=== PATIENT | female | born 1950 | race African-American/Black ===

== ENCOUNTER → 2016-06-30 | Outpatient (CLI) | payer MEDICAID, MEDICARE | LOC: WI 13:50 | PROVIDERS: ATTEND Internal Medicine Geriatric Medicine | DX: Z12.31 Encounter for screening mammogram for malignant neoplasm of breast (principal) | CPT/HCPCS: 77067; G0202 ==

== ENCOUNTER 2016-07-23 12:49 | Observation (INO) | payer MEDICARE, OTHER ==
[2016-07-23 13:12] LABS: ABSOLUTE EOSINOPHILS # (AUTO) 0.1 10^3/uL (0.0-0.6); ABSOLUTE LYMPHOCYTES (AUTO) 1.6 10^3/uL (0.5-4.7); ABSOLUTE MONOCYTES (AUTO) 0.5 10^3/uL (0.1-1.4); ABSOLUTE NEUT (AUTO) 2.4 10^3/uL (1.7-8.2); BASOPHILS % (AUTO) 0.7 % (0-2); EOSINOPHILS % (AUTO) 2.6 % (0-6); HEMATOCRIT 38.4 % (36.0-47.0); HEMOGLOBIN 12.9 g/dL (12.0-15.5); HGB HCT DIFFERENCE 0.3; LYMPHOCYTES % (AUTO) 34.4 % (13-45); MEAN CORPUSCULAR HEMOGLOBIN 30.6 pg (27.0-33.4); MEAN CORPUSCULAR HGB CONC 33.6 g/dL (32.0-36.0); MEAN CORPUSCULAR VOLUME 91 fl (80-97); MONOCYTES % (AUTO) 9.7 % (3-13); RED BLOOD COUNT 4.22 10^6/uL (3.72-5.28); RED CELL DISTRIBUTION WIDTH 13.6 % (11.5-14.0); SEGMENTED NEUTROPHILS % (AUTO) 52.6 % (42-78); WHITE BLOOD COUNT 4.7 10^3/uL (4.0-10.5)
[2016-07-23] MEDS ORDERED: ASPIRIN 81 MG TABLET, CHEWABLE PO ONE (13:13)
[2016-07-23 13:24] LABS: PROTHROMBIN TIME 13.4 SEC (11.4-15.4)
[2016-07-23 13:30] LABS: ALANINE AMINOTRANSFERASE 34 U/L (9-52); ALBUMIN 3.7 g/dL (3.5-5.0); ALKALINE PHOSPHATASE 83 U/L (38-126); ANION GAP 11 (5-19); ASPARTATE AMINO TRANSFERASE 28 U/L (14-36); BILIRUBIN,DIRECT 0.4 mg/dL (0.0-0.4); BILIRUBIN,TOTAL 0.5 mg/dL (0.2-1.3); BLOOD UREA NITROGEN 10 mg/dL (7-20); CALCIUM 9.4 mg/dL (8.4-10.2); CARBON DIOXIDE 26 mmol/L (22-30); CHLORIDE 105 mmol/L (98-107); CREATINE KINASE 149 U/L (30-135); CREATININE RESULT 0.74 mg/dL (0.52-1.25); GLUCOSE 223 mg/dL (75-110); POTASSIUM 4.6 mmol/L (3.6-5.0); SODIUM 142.4 mmol/L (137-145); TOTAL PROTEIN 7.6 g/dL (6.3-8.2)
[2016-07-23 13:41] LABS: CREATINE KINASE MB 1.38 ng/mL (<4.55); TROPONIN I 0.012 ng/mL
[2016-07-23] MEDS: NITROGLYCERIN 0.4 MG/TAB 25 TAB/BOTTLE SL PRN ×2 (13:42→14:00)
--- NOTE | 2016-07-23 14:11 | RADIOLOGY REPORT (SQ) ---
EXAM DESCRIPTION: CHEST SINGLE VIEW COMPLETED DATE/TIME: 07/23/2016 1:54 pm REASON FOR STUDY: chest pain COMPARISON: 07/27/2015. EXAM PARAMETERS: NUMBER OF VIEWS: One view. TECHNIQUE: Single frontal radiographic view of the chest acquired. RADIATION DOSE: NA LIMITATIONS: None. FINDINGS: LUNGS AND PLEURA: No opacities, masses or pneumothorax. No pleural effusion. MEDIASTINUM AND HILAR STRUCTURES: No masses. Contour normal. HEART AND VASCULAR STRUCTURES: Heart normal in size. Normal vasculature. BONES: No acute findings. HARDWARE: None in the chest. OTHER: No other significant finding. IMPRESSION: NO ACUTE RADIOGRAPHIC FINDING IN THE CHEST. TECHNICAL DOCUMENTATION: JOB ID: [id number]
--- NOTE | 2016-07-23 14:36 | ER Document Report ---
ED Cardiac - General Chief Complaint: Chest Pain Stated Complaint: CHEST PAIN Time Seen by Provider: 07/23/16 12:58 Mode of Arrival: Ambulatory Information source: Patient Notes: This is a 66-year-old female with a history of hypertension and diabetes who presents for evaluation of chest pain. She reports off and on mild chest pain for the past 2 or 3 days, however she had an episode that was much more severe this morning at [facility]. She states that while at [facility] she had substernal chest pain and pressure which radiated on her left upper extremity and felt like a "tight band". She did have associated shortness of breath, nausea, and diaphoresis. This episode scared her and EMS was notified and she came to the ER. Of note her initial blood pressure upon EMS arrival was 207/124. She states that she has not taken her medication today. Currently she states that she is feeling much better however still has dull right-sided chest pain which she rates as a 2/10. She is unsure when her last stress test was and thinks that it may have been several years ago. PCP: Dr. Mcknight TRAVEL OUTSIDE OF THE [place] IN LAST 30 DAYS: No - Related Data Allergies/Adverse Reactions: No Known Allergies Allergy (Verified 02/28/15 20:07) Past Medical History - General Information source: Patient - Social History Smoking Status: Never Smoker Chew tobacco use (# tins/day): No Frequency of alcohol use: None Drug Abuse: None Family History: Reviewed & Not Pertinent - Past Medical History Cardiac Medical History: Reports: Hx Hypertension Denies: Hx Coronary Artery Disease, Hx Heart Attack Pulmonary Medical History: Reports: Hx Asthma, Hx Bronchitis Denies: Hx COPD, Hx Pneumonia Neurological Medical History: Reports: Hx Migraine. Denies: Hx Cerebrovascular Accident, Hx Seizures Endocrine Medical History: Reports: Hx Diabetes Mellitus Type 1, Hx Diabetes Mellitus Type 2 GI Medical History: Reports: Hx Gastroesophageal Reflux Disease Musculoskeltal Medical History: Reports Hx Arthritis Psychiatric Medical History: Reports: Hx Depression, Hx Schizophrenia Past Surgical History: Reports: Hx Abdominal Surgery, Hx Hysterectomy, Hx Orthopedic Surgery - Immunizations Immunizations up to date: Yes Hx Diphtheria, Pertussis, Tetanus Vaccination: Yes Review of Systems - Review of Systems Constitutional: No symptoms reported. denies: Chills, Fever EENT: No symptoms reported Cardiovascular: See HPI Respiratory: See HPI. denies: Cough Gastrointestinal: No symptoms reported Genitourinary: No symptoms reported Musculoskeletal: No symptoms reported. denies: Leg swelling Skin: No symptoms reported Hematologic/Lymphatic: No symptoms reported Neurological/Psychological: No symptoms reported Physical Exam - Vital signs Vitals: Resp 17 07/23/16 13:00 - Notes Notes: PHYSICAL EXAMINATION: GENERAL: Well-appearing, well-nourished elderly female, pleasant and conversant and in no acute distress. HEAD: Atraumatic, normocephalic. EYES: Pupils equal round and reactive to light, extraocular movements intact, sclera anicteric, conjunctiva are normal. ENT: nares patent, oropharynx clear without exudates. Moist mucous membranes. NECK: Normal range of motion, supple without lymphadenopathy LUNGS: Breath sounds clear to auscultation bilaterally and equal. No wheezes rales or rhonchi. HEART: Regular rate and rhythm without murmurs ABDOMEN: Soft, nontender, normoactive bowel sounds. No guarding, no rebound. No masses appreciated. EXTREMITIES: Normal range of motion,no edema NEUROLOGICAL: Cranial nerves grossly intact. Normal speech. No gross focal motor or sensory deficits appreciated PSYCH: Normal mood, normal affect. SKIN: Warm, Dry, normal turgor, no rashes or lesions noted. Course - Re-evaluation Re-evalutation: 07/23/16 15:29 Pt has resolution of chest pain in the ER. However, she has multiple risk factors with a HEART score of 5 and will be admitted for further workup. Discussed with Dr. Hatch for Dr. Mcknight who accepts pt for admission. Discussed with patient and family who are in agreement, questions answered. - Vital Signs Vital signs: Temp Pulse Resp BP Pulse Ox 98.6 F 87 14 158/86 H 100 07/23/16 13:02 07/23/16 13:02 07/23/16 14:46 07/23/16 14:46 07/23/16 14:46 07/23/16 15:27 - Laboratory Result Diagrams: 07/23/16 12:56 07/23/16 12:56 Laboratory results interpreted by me: 07/23/16 12:56 Glucose 223 H Creatine Kinase 149 H - Diagnostic Test Radiology reviewed: Reports reviewed - CXR: no acute findings - EKG Interpretation by Me Additional EKG results interpreted by me: 07/23/16 15:29 EKG at 1253 shows sinus rhythm with a rate of 83. IN, QRS, and QT intervals are within normal limits. There is no ST segment elevation or depression. Discharge - Discharge Clinical Impression: Accelerated hypertension Chest pain Qualifiers: Chest pain type: unspecified Qualified Code(s): R07.9 - Chest pain, unspecified Condition: Stable Disposition: ADMITTED OBSERVATION Admitting Provider: Nikolai Unit Admitted: [facility] Referrals: DERIC MCKNIGHT MD [Primary Care Provider] - Follow up as needed
[2016-07-23] MEDS ORDERED: GLUCAGON,HUMAN RECOMB 1 MG INJ IM PRN (17:59)
[2016-07-23] MEDS ORDERED: DEXTROSE 50%-WATER SYRINGE 25 GM/50 ML DOSE IV PRN (17:59)
[2016-07-23] MEDS ORDERED: DEXTROSE 40% GEL 15 GM TUBE X 2 PO PRN (17:59)
[2016-07-23] MEDS ORDERED: DEXTROSE 40% GEL 15 GM TUBE PO PRN (17:59)
[2016-07-23] MEDS ORDERED: DEXTROSE 50%-WATER SYRINGE 12.5 GM/25 ML DOSE IV PRN (17:59)
[2016-07-23] MEDS ORDERED: ACETAMINOPHEN 325 MG TABLET PO PRN (19:14)
[2016-07-23] MEDS ORDERED: METOPROLOL SUCCINATE 50 MG TAB.SR.24H PO ONE (19:15)
[2016-07-23] MEDS ORDERED: NITROGLYCERIN 0.4 MG/TAB 25 TAB/BOTTLE SL PRN (19:16)
[2016-07-23] MEDS ORDERED: ALBUTEROL SULFATE HFA (90 MCG/PUFF) 8 GM MDI (1 MDI/ER DISP) IH PRN ×2 (19:21→21:09)
[2016-07-23] MEDS ORDERED: IPRATROPIUM/ALBUTEROL 0.5-2.5 MG/3 ML AMPUL NEB PRN (20:02)
[2016-07-23] MEDS ORDERED: FLUTICASONE PROPIONATE HFA 110 MCG/PUFF 12 GM MDI IH ONE ×2 (20:15→20:50)
[2016-07-23] MEDS ORDERED: ALBUTEROL SULFATE HFA (90 MCG/PUFF) 200 PUFF/8.5 GM MDI IH ONE (20:50)
[2016-07-23] MEDS: GABAPENTIN 400 MG CAPSULE PO SCH (22:13)
[2016-07-23] MEDS: INSULIN LISPRO 100 UNIT/ML 3 ML VIAL SUBCUT PRN (22:18)
[2016-07-23 22:25] LABS: CREATINE KINASE MB 1.3 ng/mL (<4.55); TROPONIN I 0.018 ng/mL
[2016-07-24 04:09] LABS: CREATINE KINASE MB 1.09 ng/mL (<4.55); TROPONIN I 0.023 ng/mL
[2016-07-24] MEDS: GABAPENTIN 400 MG CAPSULE PO SCH ×2 (06:16→14:10)
[2016-07-24] MEDS ORDERED: ALBUTEROL SULFATE HFA (90 MCG/PUFF) 200 PUFF/8.5 GM MDI IH PRN (07:02)
[2016-07-24] MEDS: MONTELUKAST SODIUM 10 MG TABLET PO SCH (09:39)
[2016-07-24] MEDS: LANSOPRAZOLE 15 MG TAB.RAP.DR PO SCH (09:40)
[2016-07-24] MEDS: INSULIN GLARGINE,HUM.REC.ANLOG 1,000 UNIT/10 ML UNIT SUBCUT SCH ×2 (09:41→18:02)
[2016-07-24] MEDS: METOPROLOL SUCCINATE 50 MG TAB.SR.24H PO SCH ×2 (09:41→19:39)
[2016-07-24] MEDS: HYDROCHLOROTHIAZIDE 25 MG TABLET PO SCH (09:42)
[2016-07-24] MEDS: METFORMIN HCL 500 MG TABLET PO SCH ×2 (09:42→18:01)
[2016-07-24] MEDS: SITAGLIPTIN PHOSPHATE 50 MG TABLET PO SCH ×2 (09:42→18:03)
[2016-07-24] MEDS: INSULIN LISPRO 100 UNIT/ML 3 ML VIAL SUBCUT PRN ×2 (09:43→12:53)
[2016-07-24] MEDS: DULOXETINE HCL 30 MG CAPSULE.DR PO SCH (09:44)
[2016-07-24] MEDS: LOSARTAN POTASSIUM 50 MG TABLET PO SCH (09:44)
[2016-07-24] MEDS: FLUTICASONE PROPIONATE HFA 110 MCG/PUFF 12 GM MDI IH SCH ×2 (09:45→18:04)
[2016-07-24 11:21] LABS: CREATINE KINASE MB 1.41 ng/mL (<4.55)
[2016-07-24 11:23] LABS: TROPONIN I < 0.012 ng/mL
[2016-07-24] MEDS ORDERED: GUAIFENESIN/CODEINE PHOS 100-10 MG/ 5 ML UDC PO PRN (12:14)
--- NOTE | 2016-07-24 12:14 | PDOC H&P ---
History of Present Illness Admission Date/PCP: 07/23/16 23:41 DERIC ROXANNA History of Present Illness: MELO PARDO is a 66 year old female, she came to the emergency room because of new onset substernal chest pressure. She was seen and evaluated in the ER, EKG was done, it was sinus rhythm,there is no acute ST-T wave change. The chest pain is not provoked by activity, is not relieved by rest, she has multiple risk factors for coronary artery disease including diabetes mellitus, hypertension. Past Medical History Cardiac Medical History: Reports: Hypertension Pulmonary Medical History: Reports: Asthma, Bronchitis Neurological Medical History: Reports: Migraine Endocrine Medical History: Reports: Diabetes Mellitus Type 2 GI Medical History: Reports: Gastroesophageal Reflux Disease Musculoskeltal Medical History: Reports: Arthritis Hematology: Denies: Anemia Past Surgical History Past Surgical History: Reports: Hysterectomy, Orthopedic Surgery Social History Smoking Status: Never Smoker Frequency of Alcohol Use: None Hx Recreational Drug Use: No Hx Prescription Drug Abuse: No - Advance Directive Resuscitation Status: Full Code Family History Family History: Reviewed & Not Pertinent Parental Family History Reviewed: Yes Children Family History Reviewed: Yes Sibling(s) Family History Reviewed.: Yes Medication/Allergy Home Medications: Albuterol Sulfate [Proair HFA] 2 puff IH Q4HP PRN 07/23/16 Duloxetine HCl [Cymbalta] 60 mg PO DAILY 07/23/16 Fluticasone Propionate [Flovent Hfa 110 Mcg Inhalation Aerosol 12 gm] 2 puff IH BID 07/23/16 Gabapentin [Neurontin 400 mg Capsule] 400 mg PO Q8 07/23/16 Hydrochlorothiazide 25 mg PO DAILY 07/23/16 Insulin Glargine,Hum.rec.anlog [Lantus Solostar] 60 units SQ QAM 07/23/16 Insulin Glargine,Hum.rec.anlog [Lantus Solostar] 70 units SQ QPM 07/23/16 Insulin Lispro [Humalog Kwikpen U-100] 0 units SQ .PERSLIDINGSCALE 07/23/16 Liraglutide [Victoza 2-Jose Alberto] 0.3 ml SQ DAILY 07/23/16 Losartan Potassium [Cozaar 100 mg Tablet] 100 mg PO DAILY 07/23/16 Montelukast Sodium [Singulair 10 mg Tablet] 10 mg PO DAILY 07/23/16 Omeprazole 20 mg PO DAILY 07/23/16 Saxagliptin HCl/Metformin HCl [Kombiglyze Xr 2.5-1,000 mg Tab] 1 tab PO BID Allergies/Adverse Reactions: No Known Allergies Allergy (Verified 02/28/15 20:07) Review of Systems Constitutional: ABSENT: chills, fever(s), headache(s), weight gain, weight loss Eyes: ABSENT: visual disturbances Ears: ABSENT: hearing changes Cardiovascular: PRESENT: chest pain Respiratory: PRESENT: cough Gastrointestinal: ABSENT: abdominal pain, constipation, diarrhea, hematemesis, hematochezia, nausea, vomiting Genitourinary: ABSENT: dysuria, hematuria Musculoskeletal: ABSENT: joint swelling Integumentary: ABSENT: rash, wounds Neurological: ABSENT: abnormal gait, abnormal speech, confusion, dizziness, focal weakness, syncope Psychiatric: ABSENT: anxiety, depression, homidical ideation, suicidal ideation Endocrine: ABSENT: cold intolerance, heat intolerance, menstrual abnormalities, polydipsia, polyuria Hematologic/Lymphatic: ABSENT: easy bleeding, easy bruising, lymphadenopathy Physical Exam Vital Signs: Temp Pulse Resp BP Pulse Ox 97.7 F 51 L 20 186/76 H 100 07/24/16 11:31 07/24/16 11:31 07/24/16 11:31 07/24/16 11:31 07/24/16 11:31 Intake & Output 07/23/16 07/24/16 07/25/16 06:59 06:59 06:59 Intake Total 719 Output Total 400 Balance 319 Weight 89.6 kg General appearance: PRESENT: no acute distress, well-developed, well-nourished Head exam: PRESENT: atraumatic, normocephalic Eye exam: PRESENT: conjunctiva pink, EOMI, PERRLA. ABSENT: scleral icterus Ear exam: PRESENT: normal external ear exam Mouth exam: PRESENT: moist, tongue midline Neck exam: PRESENT: full ROM Respiratory exam: PRESENT: clear to auscultation braxton Cardiovascular exam: PRESENT: RRR, +S1, +S2 Pulses: PRESENT: normal dorsalis pedis pul, +2 pedal pulses bilateral Vascular exam: PRESENT: normal capillary refill GI/Abdominal exam: PRESENT: normal bowel sounds, soft Rectal exam: PRESENT: deferred Neurological exam: PRESENT: alert, awake, oriented to person, oriented to place , oriented to time, oriented to situation, CN II-XII grossly intact Psychiatric exam: PRESENT: appropriate affect, normal mood Skin exam: PRESENT: dry, intact, warm Results Laboratory Results: 07/24/16 07/24/16 07/24/16 03:37 03:37 10:38 Creatine Kinase 101 97 CK-MB (CK-2) 1.09 Troponin I 0.023 07/24/16 10:38 Creatine Kinase CK-MB (CK-2) 1.41 Troponin I < 0.012 Impressions: Chest X-Ray 07/23/16 13:02 IMPRESSION: NO ACUTE RADIOGRAPHIC FINDING IN THE CHEST. Assessment & Plan - Diagnosis (1) Chest pain Qualifiers: Chest pain type: unspecified Qualified Code(s): R07.9 - Chest pain, unspecified Is this a current diagnosis for this admission?: YesPlan: She has multiple risk factors for coronary artery disease, she is admitted for observation, cardiac enzymes will be drawn, a nuclear stress test will be ordered.
--- NOTE | 2016-07-24 21:11 | EKG REPORT ---
SEVERITY:- NORMAL ECG - SINUS RHYTHM : Confirmed by: Konrad Jordan 24-Jul-2016 21:10:12
[2016-07-25] MEDS: INSULIN GLARGINE,HUM.REC.ANLOG 1,000 UNIT/10 ML UNIT SUBCUT SCH ×2 (09:16→17:57)
[2016-07-25] MEDS: SITAGLIPTIN PHOSPHATE 50 MG TABLET PO SCH ×2 (11:36→17:59)
[2016-07-25] MEDS: DULOXETINE HCL 30 MG CAPSULE.DR PO SCH (11:36)
[2016-07-25] MEDS: METOPROLOL SUCCINATE 50 MG TAB.SR.24H PO SCH ×2 (11:37→18:02)
[2016-07-25] MEDS: LOSARTAN POTASSIUM 50 MG TABLET PO SCH (11:37)
[2016-07-25] MEDS: LANSOPRAZOLE 15 MG TAB.RAP.DR PO SCH (11:37)
[2016-07-25] MEDS: METFORMIN HCL 500 MG TABLET PO SCH ×2 (11:38→17:59)
[2016-07-25] MEDS: MONTELUKAST SODIUM 10 MG TABLET PO SCH (11:38)
[2016-07-25] MEDS: HYDROCHLOROTHIAZIDE 25 MG TABLET PO SCH (11:38)
[2016-07-25] MEDS: FLUTICASONE PROPIONATE HFA 110 MCG/PUFF 12 GM MDI IH SCH ×2 (11:41→18:02)
[2016-07-25] MEDS ORDERED: REGADENOSON INJ 0.4 MG/5 ML DISP.SYRIN IV ONE (13:48)
--- NOTE | 2016-07-25 18:09 | PDOC DISCHARGE SUMMARY ---
General - Admit/Disc Date/PCP Admission Date/Primary Care Provider: 07/23/16 23:41 DERIC ROXANNA Discharge Date: 07/25/16 - Discharge Diagnosis (1) Chest pain Is this a current diagnosis for this admission?: Yes - Additional Information Resuscitation Status: Full Code Discharge Diet: Cardiac, Diabetic Discharge Activity: Activity As Tolerated Home Medications: Albuterol Sulfate [Proair HFA] 2 puff IH Q4HP PRN 07/23/16 Duloxetine HCl [Cymbalta] 60 mg PO DAILY 07/23/16 Fluticasone Propionate [Flovent Hfa 110 Mcg Inhalation Aerosol 12 gm] 2 puff IH BID 07/23/16 Hydrochlorothiazide 25 mg PO DAILY 07/23/16 Insulin Glargine,Hum.rec.anlog [Lantus Solostar] 60 units SQ QAM 07/23/16 Insulin Glargine,Hum.rec.anlog [Lantus Solostar] 70 units SQ QPM 07/23/16 Insulin Lispro [Humalog Kwikpen U-100] 0 units SQ .PERSLIDINGSCALE 07/23/16 Liraglutide [Victoza 2-Jose Alberto] 0.3 ml SQ DAILY 07/23/16 Losartan Potassium [Cozaar 100 mg Tablet] 100 mg PO DAILY 07/23/16 Montelukast Sodium [Singulair 10 mg Tablet] 10 mg PO DAILY 07/23/16 Omeprazole 20 mg PO DAILY 07/23/16 Saxagliptin HCl/Metformin HCl [Kombiglyze Xr 2.5-1,000 mg Tab] 1 tab PO BID Metoprolol Succinate 25 mg PO DAILY #30 tab.er.24h 07/25/16 History of Present Illness History of Present Illness: MELO PARDO is a 66 year old femaleshe came to the emergency room because of new onset substernal chest pressure. She was seen and evaluated in the ER, EKG was done, it was sinus rhythm,there is no acute ST-T wave change. The chest pain is not provoked by activity, is not relieved by rest, she has multiple risk factors for coronary artery disease including diabetes mellitus, hypertension. Hospital Course Hospital Course: Her hospital course was remarkable for eventual normalization of her indeterminate Troponin I level. Her total CK level resolved almost immediately upon admission. Patient remain pain free at the time of my evaluation and discharge. Her Stress test official report was pending at the time of her discharge. She will follow up in the office as instructed upon discharge. Physical Exam Vital Signs: Temp Pulse Resp BP Pulse Ox 98.4 F 66 18 148/67 H 99 07/25/16 15:51 07/25/16 16:37 07/25/16 16:37 07/25/16 15:51 07/25/16 16:37 Intake & Output 07/24/16 07/25/16 07/26/16 06:59 06:59 06:59 Intake Total 719 2357 Output Total 400 2725 Balance 319 -368 Weight 89.6 kg 88.2 kg General appearance: PRESENT: no acute distress, well-developed, well-nourished Head exam: PRESENT: atraumatic, normocephalic Respiratory exam: PRESENT: clear to auscultation braxton Cardiovascular exam: PRESENT: RRR. ABSENT: diastolic murmur, rubs, systolic murmur GI/Abdominal exam: PRESENT: normal bowel sounds, soft. ABSENT: distended, guarding, mass, organolmegaly, rebound, tenderness Extremities exam: ABSENT: pedal edema Musculoskeletal exam: PRESENT: deformity - related to arthritis joint invoilvement Neurological exam: PRESENT: alert, awake, oriented to person, oriented to place , oriented to time, oriented to situation, CN II-XII grossly intact. ABSENT: motor sensory deficit Psychiatric exam: PRESENT: appropriate affect, normal mood. ABSENT: homicidal ideation, suicidal ideation Skin exam: PRESENT: dry, intact, warm. ABSENT: cyanosis, rash Results Laboratory Results: 07/24/16 07/24/16 07/24/16 03:37 03:37 10:38 Creatine Kinase 101 97 CK-MB (CK-2) 1.09 Troponin I 0.023 07/24/16 10:38 Creatine Kinase CK-MB (CK-2) 1.41 Troponin I < 0.012 Impressions: Chest X-Ray 07/23/16 13:02 IMPRESSION: NO ACUTE RADIOGRAPHIC FINDING IN THE CHEST. Qualifiers PATEINT BEING DISCHARGED WITH ANY OF THE FOLLOWING DIAGNOSIS?: No Plan Discharge Plan: D/C home today. Followup in the office as instructed upon discharge. Time Spent: Less than 30 Minutes
[2016-07-25 18:36] VITALS: BP 150/70
--- NOTE | 2016-07-25 23:21 | DRAGON STRESS TEST REPORT ---
Intravenous Lexiscan Cardiolite stress test using single photon emmision computerized tomography. Date of procedure: 07/25/2016. Ordering Provider: Dr. Hatch. Patient's status: Inpatient Indication: Chest pain. Coronary risk factors: Age, diabetes mellitus, and hypertension. Resting EKG: Sinus rhythm. Isolated T inversion in lead III. Stress EKG: No changes of ischemia. The patient has no chest pain or discomfort, and there were no arrhythmias seen. Reason for termination: Protocol. Conclusions: Normal EKG and hemodynamic response to IV Lexiscan. Nuclear data: At rest the patient was given 12.95 millicuries of technetium 99m sestamibi injected intravenously. As per protocol rest non gated SPECT images were obtained. Subsequently the patient was given intravenous Lexiscan at a dose of 0.4 mg in 5 mL intravenously, followed by flush with normal saline. Subsequently the stress dose of 41.1 millicuries of technetium 99m sestamibi was injected intravenously. As per protocol stress gated images were obtained. Nuclear interpretation: Review of images showed that all segments of the myocardium had normal perfusion at rest, and normal perfusion post stress with IV Lexiscan. All segments of the myocardium had normal motion, contraction, and thickening by gated study. T. I D. ratio was normal at 0.93. Computer read rest, and stress left ventricular ejection fraction were 52 %, and 48 %, respectively. Visually both the stress and rest ejection fractions were normal, and greater than 55%. Conclusion: 1. There is no scintigraphic evidence of Lexiscan induced myocardial ischemia. 2. There is no scintigraphic evidence of myocardial infarction/scar. Recommendations: Aggressive risk factor modification, and treating the underlying co- morbidities. MTDD
== END 2016-07-25 18:49 | disposition home or self-care (01) ==
LOC: ER 12:49 → EH 15:30 → UNDOADMIN 15:30 → EH 17:10 → 3S 17:10 → EH 23:41 → INTOOBSV 23:41 → 3S 23:41
PROVIDERS: ADMIT Internal Medicine Geriatric Medicine; ATTEND Internal Medicine Geriatric Medicine
DX: R07.89 Other chest pain (principal); E11.9 Type 2 diabetes mellitus without complications; I10 Essential (primary) hypertension; K21.9 Gastro-esophageal reflux disease without esophagitis; J45.909 Unspecified asthma, uncomplicated; M19.90 Unspecified osteoarthritis, unspecified site; R06.02 Shortness of breath; R11.0 Nausea; R61 Generalized hyperhidrosis; Z79.4 Long term (current) use of insulin; Z79.899 Other long term (current) drug therapy; Z98.890 Other specified postprocedural states; Z90.710 Acquired absence of both cervix and uterus
CPT/HCPCS: 99285; 36415 ×2; 82553 ×2; 82962 ×3; 82550 ×2; 85025; 85610; 80053; 84484 ×2; 93017; 71010; 78452; 93005; 93010; A9500; A9270 ×23; J2785; J3490 ×2; Q9969; J1815

== ENCOUNTER 2016-08-04 19:09 | Inpatient (IN) | payer MEDICARE, OTHER ==
--- NOTE | 2016-08-04 19:51 | ER Document Report ---
ED Medical Screen (RME) - General Chief Complaint: Abdominal Pain Stated Complaint: ABDOMINAL PAIN Time Seen by Provider: 08/04/16 19:42 Notes: This 66-year-old female patient with history of diabetes and hypertension comes emergency room complaining of onset last night of intermittent lower abdominal pain and cramps with nausea which is gotten much worse today. They are sharp cramps in the suprapubic and lower pelvic region. They do not radiate. She was admitted here just over a week ago for chest pain rule out, had a negative Lexiscan stress test. I have greeted and performed a rapid initial assessment of this patient. A comprehensive ED assessment and evaluation of the patient, analysis of test results and completion of the medical decision making process will be conducted by additional ED providers. TRAVEL OUTSIDE OF THE [place] IN LAST 30 DAYS: No - Related Data Allergies/Adverse Reactions: No Known Allergies Allergy (Verified 02/28/15 20:07) Past Medical History - Social History Chew tobacco use (# tins/day): No Frequency of alcohol use: None Drug Abuse: None - Past Medical History Cardiac Medical History: Reports: Hx Hypertension Denies: Hx Coronary Artery Disease, Hx Heart Attack Pulmonary Medical History: Reports: Hx Asthma, Hx Bronchitis Denies: Hx COPD, Hx Pneumonia Neurological Medical History: Reports: Hx Migraine. Denies: Hx Cerebrovascular Accident, Hx Seizures Endocrine Medical History: Reports: Hx Diabetes Mellitus Type 1, Hx Diabetes Mellitus Type 2 Renal/ Medical History: Denies: Hx Peritoneal Dialysis GI Medical History: Reports: Hx Gastroesophageal Reflux Disease Musculoskeltal Medical History: Reports Hx Arthritis Psychiatric Medical History: Reports: Hx Schizophrenia Denies: Hx Depression Past Surgical History: Reports: Hx Abdominal Surgery, Hx Hysterectomy, Hx Orthopedic Surgery - Immunizations Immunizations up to date: Yes Hx Diphtheria, Pertussis, Tetanus Vaccination: Yes Physical Exam - Vital signs Vitals: Temp Pulse Resp BP Pulse Ox 98.3 F 113 H 18 175/117 H 100 08/04/16 19:20 08/04/16 19:20 08/04/16 19:20 08/04/16 19:20 08/04/16 19:20 Course - Vital Signs Vital signs: Temp Pulse Resp BP Pulse Ox 98.3 F 113 H 18 175/117 H 100 08/04/16 19:20 08/04/16 19:20 08/04/16 19:20 08/04/16 19:20 08/04/16 19:20
[2016-08-04] MEDS ORDERED: ONDANSETRON HCL INJ/PF 4 MG/2 ML SDV IM ONE (19:53)
[2016-08-04] MEDS ORDERED: MORPHINE SULFATE 10 MG/ML INJ IV ONE ×2 (19:53→23:55)
[2016-08-04 20:46] LABS: ABSOLUTE BASOPHILS # (AUTO) 0.1 10^3/uL (0.0-0.2); ABSOLUTE MONOCYTES (AUTO) 0.7 10^3/uL (0.1-1.4); ABSOLUTE NEUT (AUTO) 7.6 10^3/uL (1.7-8.2); BASOPHILS % (AUTO) 0.7 % (0-2); EOSINOPHILS % (AUTO) 0.2 % (0-6); HEMATOCRIT 46.3 % (36.0-47.0); HEMOGLOBIN 15.2 g/dL (12.0-15.5); HGB HCT DIFFERENCE -0.7; LYMPHOCYTES % (AUTO) 19.5 % (13-45); MEAN CORPUSCULAR HEMOGLOBIN 29.6 pg (27.0-33.4); MEAN CORPUSCULAR HGB CONC 32.8 g/dL (32.0-36.0); MEAN CORPUSCULAR VOLUME 90 fl (80-97); RED BLOOD COUNT 5.13 10^6/uL (3.72-5.28); RED CELL DISTRIBUTION WIDTH 13.8 % (11.5-14.0); SEGMENTED NEUTROPHILS % (AUTO) 72.6 % (42-78); WHITE BLOOD COUNT 10.5 10^3/uL (4.0-10.5)
[2016-08-04 20:55] LABS: APPEARANCE,URINE SLIGHTLY-CLOUDY; BILIRUBIN,URINE NEGATIVE (NEGATIVE); GLUCOSE, URINE NEGATIVE (NEGATIVE); KETONES,URINE NEGATIVE (NEGATIVE); LEUKOCYTE ESTERASE,URINE MODERATE (NEGATIVE); NITRITE,URINE NEGATIVE (NEGATIVE); PROTEIN,URINE 100 mg/dL (NEGATIVE); UROBILINOGEN,URINE NEGATIVE mg/dL (<2.0)
--- NOTE | 2016-08-04 20:55 | RADIOLOGY REPORT (SQ) ---
EXAM DESCRIPTION: CT LTD RENAL STONE PROTOCOL ON COMPLETED DATE/TIME: 08/04/2016 8:43 pm REASON FOR STUDY: suprapubic, pelvic pain, cramps, nausea COMPARISON: None. TECHNIQUE: CT scan of the abdomen and pelvis performed without intravenous or oral contrast. Images reviewed with lung, soft tissue, and bone windows. Reconstructed coronal and sagittal MPR images revi ewed. All images stored on PACS. All CT scanners at this facility use dose modulation, iterative reconstruction, and/or weight based d osing when appropriate to reduce radiation dose to as low as reasonably achievable (ALARA). [facility]: Dose Right [facility]: CareDose [facility]: Dose Right [facility]: Teradose 4D [facility]: Teamo.ru RADIATION DOSE: 11.36mGy. LIMITATIONS: None. FINDINGS: LOWER CHEST: Mild subpleural scarring-subsegmental atelectasis. NON-CONTRASTED LIVER, SPLEEN, ADRENALS: Small amount of fluid over the dome of the liver. Evaluation limited by lack of IV contrast. No identified significant masses. PANCREAS: No masses. No peripancreatic inflammatory changes. GALLBLADDER: No identified stones by CT criteria. No inflammatory changes to suggest cholecystitis. RIGHT KIDNEY AND URETER: No suspicious masses. Assessment limited by lack of IV contrast. No signif icant calcifications. No hydronephrosis or hydroureter. LEFT KIDNEY AND URETER: No suspicious masses. Assessment limited by lack of IV contrast. No signifi cant calcifications. No hydronephrosis or hydroureter. AORTA AND RETROPERITONEUM: No aneurysm. No retroperitoneal masses or adenopathy. BOWEL AND PERITONEAL CAVITY: Small amounts of mesenteric free fluid in the left lower quadrant with m ildly dilated small bowel loops measuring 3.5 cm with small air-fluid levels, there does appear to be tethering in the mesenteric, suggestive of possible developing obstruction. APPENDIX: Not visualized. PELVIS, BLADDER, AND ABDOMINAL WALL: Mild free fluid. Bladder normal. BONES: No significant findings. OTHER: No other significant finding. IMPRESSION: Small amounts of mesenteric free fluid in the left lower quadrant with mildly dilated sm all bowel loops measuring 3.5 cm with small air-fluid levels, there does appear to be tethering in th e mesenteric, suggestive of possible developing obstruction. TECHNICAL DOCUMENTATION: JOB ID: [id number] Quality ID # [id number]: Final reports with documentation of one or more dose reduction techniques (e.g., Au tomated exposure control, adjustment of the mA and/or kV according to patient size, use of iterative reconstruction technique) 2010 [employer]- All Rights Reserved
[2016-08-04 22:19] LABS: ALANINE AMINOTRANSFERASE 29 U/L (9-52); ALBUMIN 4.4 g/dL (3.5-5.0); ALKALINE PHOSPHATASE 101 U/L (38-126); ANION GAP 12 (5-19); ASPARTATE AMINO TRANSFERASE 30 U/L (14-36); BILIRUBIN,DIRECT 0.3 mg/dL (0.0-0.4); BILIRUBIN,TOTAL 0.8 mg/dL (0.2-1.3); BLOOD UREA NITROGEN 16 mg/dL (7-20); CALCIUM 9.8 mg/dL (8.4-10.2); CARBON DIOXIDE 26 mmol/L (22-30); CHLORIDE 102 mmol/L (98-107); CREATININE RESULT 0.79 mg/dL (0.52-1.25); GLUCOSE 220 mg/dL (75-110); POTASSIUM 4.5 mmol/L (3.6-5.0); SODIUM 139.6 mmol/L (137-145); TOTAL PROTEIN 8.8 g/dL (6.3-8.2)
[2016-08-04] MEDS ORDERED: ONDANSETRON HCL INJ/PF 4 MG/2 ML SDV IV ONE (23:55)
[2016-08-04] MEDS ORDERED: NORMAL SALINE 1000 ML 1,000 ML IV ONE (23:55)
--- NOTE | 2016-08-05 01:11 | ER Document Report ---
ED General - General Chief Complaint: Abdominal Pain Stated Complaint: ABDOMINAL PAIN Time Seen by Provider: 08/04/16 19:42 Notes: Patient is a 66-year-old female who says that earlier today she started feeling nauseous or having pain in the lower portion of her abdomen. Pain is mostly in the left. She had one bowel movement today but has not been passing gas and had no further bowel movements since then. She never had these symptoms before. She has had no fevers. No diarrhea. No blood in emesis. No recent trauma to the abdomen. Only previous abdominal surgery is a left nephrectomy. No other complaints at this time. No dysuria. TRAVEL OUTSIDE OF THE [place] IN LAST 30 DAYS: No - Related Data Allergies/Adverse Reactions: No Known Allergies Allergy (Verified 02/28/15 20:07) Past Medical History - Social History Smoking Status: Never Smoker Chew tobacco use (# tins/day): No Frequency of alcohol use: None Drug Abuse: None Family History: Reviewed & Not Pertinent Patient has suicidal ideation: No Patient has homicidal ideation: No - Past Medical History Cardiac Medical History: Reports: Hx Hypertension Denies: Hx Coronary Artery Disease, Hx Heart Attack Pulmonary Medical History: Reports: Hx Asthma, Hx Bronchitis Denies: Hx COPD, Hx Pneumonia Neurological Medical History: Reports: Hx Migraine. Denies: Hx Cerebrovascular Accident, Hx Seizures Endocrine Medical History: Reports: Hx Diabetes Mellitus Type 1, Hx Diabetes Mellitus Type 2 Renal/ Medical History: Denies: Hx Peritoneal Dialysis GI Medical History: Reports: Hx Gastroesophageal Reflux Disease Musculoskeltal Medical History: Reports Hx Arthritis Psychiatric Medical History: Reports: Hx Schizophrenia Denies: Hx Depression Past Surgical History: Reports: Hx Abdominal Surgery, Hx Hysterectomy, Hx Orthopedic Surgery - Immunizations Immunizations up to date: Yes Hx Diphtheria, Pertussis, Tetanus Vaccination: Yes Review of Systems - Review of Systems Notes: My Normal Review Basic REVIEW OF SYSTEMS: CONSTITUTIONAL : Denies fever, chills, or sweats. Denies recent illness. RESPIRATORY: Denies cough, cold, or chest congestion. Denies shortness of breath, difficulty breathing, or wheezing. GASTROINTESTINAL: Abdominal pain and vomiting. GENITOURINARY: Denies difficulty urinating, painful urination, burning, frequency, or blood in urine. FEMALE GENITOURINARY: Denies vaginal bleeding, abnormal or irregular periods. LMP: MUSCULOSKELETAL: Denies neck or back pain or joint pain or swelling. SKIN: Denies rash or skin lesions. NEUROLOGICAL: Denies altered mental status or loss of consciousness. Denies headache. Denies weakness or paralysis or loss of use of either side. Denies problems with gait or speech. Denies sensory or motor loss. ALL OTHER SYSTEMS REVIEWED AND NEGATIVE. Physical Exam - Vital signs Vitals: Temp Pulse Resp BP Pulse Ox 98.3 F 113 H 18 175/117 H 100 08/04/16 19:20 08/04/16 19:20 08/04/16 19:20 08/04/16 19:20 08/04/16 19:20 - Notes Notes: General Appearance: Well nourished, alert, cooperative, no acute distress, moderate obvious discomfort. Vitals: reviewed, See vital signs table. Head: no swelling or tenderness to the head Eyes: PERRL, EOMI, Conjuctiva clear Mouth: No decreasd moisture Lungs: No wheezing, No rales, No rhonci, No accessory muscle use, good air exchange bilaterally. Heart: Normal rate, Regular rythm, No murmur, no rub Abdomen: Diminished bowel sounds, moderate suprapubic and left lower quadrant abdominal tenderness to palpation, abdomen is soft and nonrigid. No guarding, no rebound, no abdominal masses, no organomegaly Extremities: strength 5/5 in all extremities, good pulses in all extremities, no swelling or tenderness in the extremities, no edema. Skin: warm, dry, appropriate color, no rash Neuro: speech clear, oriented x 3, normal affect, responds appropriately to questions. Course - Vital Signs Vital signs: Temp Pulse Resp BP Pulse Ox 98.3 F 113 H 18 175/117 H 100 08/04/16 19:20 08/04/16 19:20 08/04/16 19:20 08/04/16 19:20 08/04/16 19:20 - Laboratory Result Diagrams: 08/04/16 20:33 08/04/16 21:50 Laboratory results interpreted by me: 08/04/16 08/04/16 20:33 21:50 Glucose 220 H Total Protein 8.8 H Urine Protein 100 H Ur Leukocyte Esterase MODERATE H - Transfer of Care Notes: 08/05/16 01:[address] scan shows evidence of developing small bowel obstruction. I did speak with Dr. Torres, general surgeon, who requested we place an NG tube and he said he would manage the obstruction, however, he requests that we call medicine to see if they will admit because of the patient's multiple comorbidities including diabetes, hypertension. I spoke with Dr. Hatch who is covering for the patient's primary care physician, Dr. Menchaca he agrees to admit the patient. Patient will be admitted for further management. Dictation of this chart was performed using voice recognition software; therefore, there may be some unintended grammatical errors. Discharge - Discharge Clinical Impression: Small bowel obstruction Condition: Stable Disposition: ADMITTED OBSERVATION Admitting Provider: Nikolai Unit Admitted: Medical Floor
[2016-08-05] MEDS ORDERED: METOCLOPRAMIDE HCL INJ/PF 10 MG/2 ML SDV IV ONE (02:02)
[2016-08-05] MEDS ORDERED: LIDOCAINE 2% JELLY 30 ML TUBE TOP ONE (02:02)
[2016-08-05] MEDS ORDERED: LIDOCAINE 2% JELLY 5 ML TUBE ONE (02:10)
[2016-08-05] MEDS ORDERED: ENALAPRILAT DIHYDRATE INJ/PF 2.5 MG/2 ML SDV IV ONE ×2 (05:17→05:45)
[2016-08-05] MEDS ORDERED: DEXTROSE 50%-WATER 25 GM/50 ML DISP.SYRIN IV PRN ×2 (05:23)
[2016-08-05] MEDS ORDERED: DEXTROSE 40% GEL 15 GM TUBE PO PRN ×2 (05:23)
[2016-08-05] MEDS ORDERED: GLUCAGON,HUMAN RECOMB 1 MG INJ SUBCUT PRN (05:23)
[2016-08-05] MEDS ORDERED: PHARMACY COMMUNICATION ORDER MC NR (05:30)
[2016-08-05] MEDS ORDERED: ENALAPRILAT DIHYDRATE INJ/PF 2.5 MG/2 ML SDV IV PRN (05:36)
[2016-08-05] MEDS ORDERED: ONDANSETRON HCL INJ/PF 4 MG/2 ML SDV ONE (06:04)
[2016-08-05] MEDS ORDERED: ONDANSETRON HCL INJ/PF 4 MG/2 ML SDV IV PRN (06:32)
--- NOTE | 2016-08-05 06:54 | RADIOLOGY REPORT (SQ) ---
EXAM DESCRIPTION: KUB/ABDOMEN (SINGLE VIEW) COMPLETED DATE/TIME: 08/05/2016 6:25 am REASON FOR STUDY: check for NG tube placement COMPARISON: CT, 08/04/2016. NUMBER OF VIEWS: One view. TECHNIQUE: Supine radiographic image of the abdomen acquired. LIMITATIONS: None. FINDINGS: BOWEL GAS PATTERN: 3 stacked appearing loops of jejunal bowel measuring up to 3.5 cm in di ameter with gas distention suggestive of focal ileus consistent with CT, 08/04/2016. Moderate right co lonic stool retention. CALCIFICATIONS: No suspicious calcifications. SOFT TISSUES: No gross mass or suggestion of organomegaly. HARDWARE: Left pelvic clips. BONES: No acute fracture. No worrisome bone lesions. OTHER: No other significant finding. IMPRESSION: Focal ileus pattern of the left paracentral abdomen ; cannot exclude early or partial ob structive process. TECHNICAL DOCUMENTATION: JOB ID: [id number] [employer]- All Rights Reserved
[2016-08-05] MEDS: INSULIN LISPRO 100 UNIT/ML 3 ML VIAL SUBCUT PRN ×4 (07:18→23:48)
--- NOTE | 2016-08-05 08:50 | RADIOLOGY REPORT (SQ) ---
EXAM DESCRIPTION: KUB/ABDOMEN (SINGLE VIEW) COMPLETED DATE/TIME: 08/05/2016 8:34 am REASON FOR STUDY: Check NG tube placement COMPARISON: None. NUMBER OF VIEWS: One view. TECHNIQUE: Supine radiographic image of the abdomen acquired. LIMITATIONS: None. FINDINGS: BOWEL GAS PATTERN: Stable mild distension of small bowel loops. CALCIFICATIONS: No suspicious calcifications. SOFT TISSUES: No gross mass or suggestion of organomegaly. HARDWARE: Interval placement of nasogastric tube terminating expected location of the stomach. BONES: No acute fracture. No worrisome bone lesions. OTHER: No other significant finding. IMPRESSION: SATISFACTORY PLACEMENT OF NASOGASTRIC TUBE. OTHERWISE STABLE ABDOMINAL RADIOGRAPH. TECHNICAL DOCUMENTATION: JOB ID: [id number] [employer]- All Rights Reserved
[2016-08-05] MEDS ORDERED: MORPHINE SULFATE 10 MG/ML INJ ONE (10:15)
[2016-08-05] MEDS: MORPHINE SULFATE 10 MG/ML INJ IV PRN (10:17)
--- NOTE | 2016-08-05 16:59 | CONSULTATION REPORT E ---
Consultation Report NAME: MELO PARDO : 1950 AGE: 66Y DATE: 08/05/2016 413 A TO: RAMÍREZ STEPHEN M.D. FROM: DERIC MCKNIGHT M.D. Requesting Physician REASON FOR CONSULTATION: Patient with a small bowel obstruction on a limited CAT scan of the abdomen. HISTORY OF PRESENT ILLNESS: This is a 66-year-old female who had a history of hysterectomy, complained of abdominal pains yesterday. Pain is more in the lower portion of the abdomen and more towards the left side. She had a bowel movement yesterday, but has not been passing gas. No bowel movement since then. Patient claims she never had these symptoms in the past. Denies any fever, diarrhea. No blood in emesis. No recent trauma to the abdomen. PAST HISTORY: 1. History of diabetes mellitus, type 1 and type 2. 2. Hypertension. 3. COPD. 4. Bronchitis. 5. Asthma. 6. History of migraines. 7. GERD. 8. Reports arthritis. PSYCHIATRIC HISTORY: History of schizophrenia. PAST SURGICAL HISTORY: 1. Abdominal surgery. 2. Hysterectomy. 3. History of orthopedic surgery. REVIEW OF SYSTEMS: CONSTITUTIONAL: Denies fever, chills, or sweats. RESPIRATORY: Denies cough or chest congestion. GASTROINTESTINAL: Abdominal pain with vomiting, as in HPI. GENITOURINARY: No dysuria nor blood in the urine. Female genitourinary. Denies vaginal bleeding. MUSCULOSKELETAL: Denies neck or back pains. SKIN: Denies rash or skin lesions. NEUROLOGIC: Denies loss of consciousness or altered mental status. All other systems are reviewed and unremarkable. ALLERGIES: NONE KNOWN. SOCIAL HISTORY: Never smoked. Denies alcohol use or drug use. FAMILY HISTORY: Noncontributory. PHYSICAL EXAMINATION: GENERAL: Well-developed, well-nourished, 66-year-old female, alert and oriented. Complaining of abdominal pain. HEENT: Neck is supple. No thyromegaly. LUNGS: Clear. HEART: Regular sinus rhythm. ABDOMEN: Soft with tenderness in the left lower quadrant. EXTREMITIES: No edema. SKIN: Warm and dry. NEUROLOGIC: Oriented x3. VITAL SIGNS: Temperature of 98.3 degrees Fahrenheit, pulse of 113 per minute, respiratory of 18 per minute, blood pressure 175/117, pulse oximetry of 100% on room air. LABS: Her labs showed a white count that is normal. She had a CT scan of the abdomen which showed mildly dilated small bowel loops to about 3.5 cm in diameter with air fluid levels. This appears to be developing an obstruction. IMPRESSION: Partial small bowel obstruction, likely due to adhesions. PLAN: 1. Continue to keep the NG tube. 2. Monitor electrolytes and CBC in the morning. 3. Followup KUB in the morning. I just saw her around 4:00 p.m. today and she claimed her pains are much less than this morning. DICTATING PHYSICIAN: RAMÍREZ STEPHEN M.D. [id number] PHY#: [id number] ID: [id number] JOB#: [id number] ACCT: [id number] cc:RAMÍREZ STEPHEN M.D. >
[2016-08-05 17:08] LABS: HEMOGLOBIN 13.5 g/dL (12.0-15.5); HGB HCT DIFFERENCE -0.5; MEAN CORPUSCULAR HEMOGLOBIN 30.1 pg (27.0-33.4); MEAN CORPUSCULAR HGB CONC 32.9 g/dL (32.0-36.0); MEAN CORPUSCULAR VOLUME 91 fl (80-97); RED BLOOD COUNT 4.48 10^6/uL (3.72-5.28); RED CELL DISTRIBUTION WIDTH 13.5 % (11.5-14.0); WHITE BLOOD COUNT 9.1 10^3/uL (4.0-10.5)
[2016-08-05 17:19] LABS: PROTHROMBIN TIME 13.8 SEC (11.4-15.4)
[2016-08-05 17:27] LABS: CREATININE RESULT 0.78 mg/dL (0.52-1.25)
[2016-08-05 17:34] LABS: PARTIAL THROMBOPLASTIN TIME 20.4 SEC (23.5-35.8)
[2016-08-05] MEDS: DEXTROSE 5%-WATER 1000 ML 1,000 ML IV PRN (21:20)
[2016-08-05] MEDS: HEPARIN SOD (PORCINE) 5,000 UNIT/ML 1 ML SYRINGE SUBCUT SCH (21:20)
[2016-08-06] MEDS: INSULIN LISPRO 100 UNIT/ML 3 ML VIAL SUBCUT PRN ×3 (05:11→17:09)
[2016-08-06] MEDS: HEPARIN SOD (PORCINE) 5,000 UNIT/ML 1 ML SYRINGE SUBCUT SCH ×3 (05:20→22:05)
[2016-08-06 06:27] LABS: ABSOLUTE EOSINOPHILS # (AUTO) 0.2 10^3/uL (0.0-0.6); ABSOLUTE LYMPHOCYTES (AUTO) 2.1 10^3/uL (0.5-4.7); ABSOLUTE MONOCYTES (AUTO) 0.7 10^3/uL (0.1-1.4); ABSOLUTE NEUT (AUTO) 4.7 10^3/uL (1.7-8.2); BASOPHILS % (AUTO) 0.6 % (0-2); EOSINOPHILS % (AUTO) 2.3 % (0-6); HEMATOCRIT 37.7 % (36.0-47.0); HEMOGLOBIN 12.5 g/dL (12.0-15.5); HGB HCT DIFFERENCE -0.2; LYMPHOCYTES % (AUTO) 26.9 % (13-45); MEAN CORPUSCULAR HEMOGLOBIN 30.4 pg (27.0-33.4); MEAN CORPUSCULAR HGB CONC 33.2 g/dL (32.0-36.0); MEAN CORPUSCULAR VOLUME 91 fl (80-97); MONOCYTES % (AUTO) 9.6 % (3-13); RED BLOOD COUNT 4.13 10^6/uL (3.72-5.28); RED CELL DISTRIBUTION WIDTH 13.5 % (11.5-14.0); SEGMENTED NEUTROPHILS % (AUTO) 60.6 % (42-78); WHITE BLOOD COUNT 7.8 10^3/uL (4.0-10.5)
[2016-08-06 06:47] LABS: ANION GAP 9 (5-19); BLOOD UREA NITROGEN 12 mg/dL (7-20); CARBON DIOXIDE 27 mmol/L (22-30); CHLORIDE 101 mmol/L (98-107); CREATININE RESULT 0.76 mg/dL (0.52-1.25); GLUCOSE 214 mg/dL (75-110); POTASSIUM 3.9 mmol/L (3.6-5.0); SODIUM 137.1 mmol/L (137-145)
--- NOTE | 2016-08-06 08:36 | RADIOLOGY REPORT (SQ) ---
EXAM DESCRIPTION: KUB/ABDOMEN (SINGLE VIEW) COMPLETED DATE/TIME: 08/06/2016 8:28 am REASON FOR STUDY: BOWEL OBSTRUCTION K56.69 OTHER INTESTINAL OBSTRUCTION D78.22 POSTPROC HEMORRHAGE OF THE SPLEEN FOLLOWING OTHER PRO COMPARISON: 08/05/2016. NUMBER OF VIEWS: One view. TECHNIQUE: Supine radiographic image of the abdomen acquired. LIMITATIONS: None. FINDINGS: BOWEL GAS PATTERN: Improved bowel gas pattern. CALCIFICATIONS: No suspicious calcifications. SOFT TISSUES: No gross mass or suggestion of organomegaly. HARDWARE: Stable position enteric tube. BONES: No acute fracture. No worrisome bone lesions. OTHER: No other significant finding. IMPRESSION: IMPROVED BOWEL GAS PATTERN SUGGESTIVE OF RESOLVING OBSTRUCTION/ILEUS. TECHNICAL DOCUMENTATION: JOB ID: [id number] [employer]- All Rights Reserved
[2016-08-06] MEDS: MORPHINE SULFATE 10 MG/ML INJ IV PRN (09:54)
[2016-08-06 10:23] LABS: ABSOLUTE BASOPHILS # (AUTO) 0.1 10^3/uL (0.0-0.2); ABSOLUTE EOSINOPHILS # (AUTO) 0.2 10^3/uL (0.0-0.6); ABSOLUTE LYMPHOCYTES (AUTO) 2.3 10^3/uL (0.5-4.7); ABSOLUTE MONOCYTES (AUTO) 0.6 10^3/uL (0.1-1.4); ABSOLUTE NEUT (AUTO) 4.7 10^3/uL (1.7-8.2); BASOPHILS % (AUTO) 0.7 % (0-2); EOSINOPHILS % (AUTO) 2.6 % (0-6); HEMATOCRIT 38.3 % (36.0-47.0); HEMOGLOBIN 12.5 g/dL (12.0-15.5); HGB HCT DIFFERENCE -0.8; LYMPHOCYTES % (AUTO) 29.7 % (13-45); MEAN CORPUSCULAR HEMOGLOBIN 29.8 pg (27.0-33.4); MEAN CORPUSCULAR HGB CONC 32.7 g/dL (32.0-36.0); MEAN CORPUSCULAR VOLUME 91 fl (80-97); MONOCYTES % (AUTO) 7.4 % (3-13); RED BLOOD COUNT 4.21 10^6/uL (3.72-5.28); RED CELL DISTRIBUTION WIDTH 13.4 % (11.5-14.0); SEGMENTED NEUTROPHILS % (AUTO) 59.6 % (42-78); WHITE BLOOD COUNT 7.9 10^3/uL (4.0-10.5)
--- NOTE | 2016-08-06 10:38 | PROGRESS NOTE E ---
Progress Note NAME: MELO PARDO : 1950 AGE: 66Y DATE: 08/06/2016 ROOM: 413 SUBJECTIVE: The patient had been doing well until she started ambulating this morning. She complained of lightheadedness and dizziness and more pains in the left lower quadrant. She had another x-ray, KUB of the abdomen this morning which showed improvement of the bowel obstruction and appears to have resolved at this time. Her NG tube also has about 400 mL but I suspect is primarily from the ice chips that she was taking. Her abdomen is soft with mild tenderness in the left lower quadrant. She denies any flatus at this time. PLAN: Discontinue the NG tube but keep her n.p.o. except for ice chips and slightly increase her IV fluids from 70 to about 100 per hour. We will re-evaluate her later today or in the a.m. as far as increasing her diet. Her white count is normal. DICTATING PHYSICIAN: RAMÍREZ STEPHEN M.D. [id number] PHY#: [id number] ID: [id number] JOB#: [id number] ACCT: [id number] cc: >
[2016-08-06 10:40] LABS: ANION GAP 10 (5-19); BLOOD UREA NITROGEN 13 mg/dL (7-20); CARBON DIOXIDE 29 mmol/L (22-30); CHLORIDE 99 mmol/L (98-107); CREATININE RESULT 0.78 mg/dL (0.52-1.25); GLUCOSE 211 mg/dL (75-110); SODIUM 138.4 mmol/L (137-145)
--- NOTE | 2016-08-06 12:49 | PDOC H&P ---
History of Present Illness Admission Date/PCP: 08/05/16 05:22 DERIC MCKNIGHT History of Present Illness: MELO PARDO is a 66 year old female, she has a history of type 2 diabetes mellitus, she was just recently admitted in this hospital on 07/23/2016 when she presented with chest pain at that time she had a Cardiolite Lexiscan stress test done and it was negative for acute ischemia. She went to the emergency room with abdominal pain for the last couple of days, a CAT scan of the abdomen and pelvis was done, the CAT scan demonstrated small bowel obstruction. Surgery was consulted in the emergency room but noninvasive approach was advised ,nasogastric tube was inserted to decompress the stomach and the intestines. She has multiple comorbid conditions including diabetes mellitus type 2 with complications including neuropathy Past Medical History Cardiac Medical History: Reports: Hypertension Pulmonary Medical History: Reports: Asthma, Bronchitis Neurological Medical History: Reports: Migraine Endocrine Medical History: Reports: Diabetes Mellitus Type 2 GI Medical History: Reports: Gastroesophageal Reflux Disease Musculoskeltal Medical History: Reports: Arthritis Past Surgical History Past Surgical History: Reports: Hysterectomy, Orthopedic Surgery Social History Smoking Status: Never Smoker Frequency of Alcohol Use: None Hx Recreational Drug Use: No Hx Prescription Drug Abuse: No Family History Family History: Reviewed & Not Pertinent Parental Family History Reviewed: Yes Children Family History Reviewed: Yes Sibling(s) Family History Reviewed.: Yes Medication/Allergy Home Medications: Albuterol Sulfate [Proair HFA] 2 puff IH Q4HP PRN 07/23/16 Duloxetine HCl [Cymbalta] 60 mg PO DAILY 07/23/16 Fluticasone Propionate [Flovent Hfa 110 Mcg Inhalation Aerosol 12 gm] 2 puff IH BID 07/23/16 Hydrochlorothiazide 25 mg PO DAILY 07/23/16 Insulin Glargine,Hum.rec.anlog [Lantus Solostar] 60 units SQ QAM 07/23/16 Insulin Glargine,Hum.rec.anlog [Lantus Solostar] 70 units SQ QPM 07/23/16 Insulin Lispro [Humalog Kwikpen U-100] 0 units SQ .PERSLIDINGSCALE 07/23/16 Liraglutide [Victoza 2-Jose Alberto] 0.3 ml SQ DAILY 07/23/16 Losartan Potassium [Cozaar 100 mg Tablet] 100 mg PO DAILY 07/23/16 Montelukast Sodium [Singulair 10 mg Tablet] 10 mg PO DAILY 07/23/16 Omeprazole 20 mg PO DAILY 07/23/16 Saxagliptin HCl/Metformin HCl [Kombiglyze Xr 2.5-1,000 mg Tab] 1 tab PO BID Metoprolol Succinate 25 mg PO DAILY #30 tab.er.24h 07/25/16 Aspirin [Aspirin 81 mg Chewable Tablet] 81 mg PO DAILY 08/05/16 Carvedilol [Coreg 12.5 mg Tablet] 12.5 mg PO Q12 08/05/16 Loratadine [Claritin] 10 mg PO DAILY 08/05/16 Multivitamins with Iron [One Daily with Iron] 1 each PO DAILY 08/05/16 Allergies/Adverse Reactions: No Known Allergies Allergy (Verified 02/28/15 20:07) Review of Systems Constitutional: ABSENT: chills, fever(s), headache(s), weight gain, weight loss Eyes: ABSENT: visual disturbances Ears: ABSENT: hearing changes Cardiovascular: ABSENT: chest pain, dyspnea on exertion, edema, orthropnea, palpitations Respiratory: ABSENT: cough, hemoptysis Gastrointestinal: PRESENT: abdominal pain Genitourinary: ABSENT: dysuria, hematuria Musculoskeletal: ABSENT: joint swelling Integumentary: ABSENT: rash, wounds Neurological: ABSENT: abnormal gait, abnormal speech, confusion, dizziness, focal weakness, syncope Psychiatric: ABSENT: anxiety, depression, homidical ideation, suicidal ideation Endocrine: ABSENT: cold intolerance, heat intolerance, menstrual abnormalities, polydipsia, polyuria Hematologic/Lymphatic: ABSENT: easy bleeding, easy bruising, lymphadenopathy Physical Exam Vital Signs: Temp Pulse Resp BP Pulse Ox 98.4 F 87 15 128/75 H 100 08/06/16 11:59 08/06/16 11:59 08/06/16 11:59 08/06/16 11:59 08/06/16 11:59 Intake & Output 08/05/16 08/06/16 08/07/16 06:59 06:59 06:59 Intake Total 1302 Output Total 303 100 Balance 999 -100 Weight 86 kg Head exam: PRESENT: atraumatic, normocephalic Eye exam: PRESENT: conjunctiva pink, EOMI, PERRLA Ear exam: PRESENT: normal external ear exam Mouth exam: PRESENT: moist, tongue midline Neck exam: PRESENT: full ROM Respiratory exam: PRESENT: clear to auscultation braxton Cardiovascular exam: PRESENT: RRR, +S1, +S2 Pulses: PRESENT: normal dorsalis pedis pul, +2 pedal pulses bilateral Vascular exam: PRESENT: normal capillary refill GI/Abdominal exam: PRESENT: firm, tenderness Rectal exam: PRESENT: deferred Neurological exam: PRESENT: alert, awake, oriented to person, oriented to place , oriented to time, oriented to situation, CN II-XII grossly intact Psychiatric exam: PRESENT: appropriate affect Skin exam: PRESENT: dry, intact, warm Results Laboratory Results: 08/06/16 09:53 08/06/16 09:53 08/05/16 08/05/16 08/06/16 16:54 16:54 05:46 WBC 9.1 7.8 RBC 4.48 4.13 Hgb 13.5 12.5 Hct 41.0 37.7 MCV 91 91 MCH 30.1 30.4 MCHC 32.9 33.2 RDW 13.5 13.5 Plt Count 173 161 Seg Neutrophils % 60.6 Lymphocytes % 26.9 Monocytes % 9.6 Eosinophils % 2.3 Basophils % 0.6 Absolute Neutrophils 4.7 Absolute Lymphocytes 2.1 Absolute Monocytes 0.7 Absolute Eosinophils 0.2 Absolute Basophils 0.0 Sodium Potassium Chloride Carbon Dioxide Anion Gap BUN Creatinine 0.78 Est GFR ( Amer) > 60 Est GFR (Non-Af Amer) > 60 Glucose Calcium 08/06/16 08/06/16 08/06/16 05:46 09:53 09:53 WBC 7.9 RBC 4.21 Hgb 12.5 Hct 38.3 MCV 91 MCH 29.8 MCHC 32.7 RDW 13.4 Plt Count 180 Seg Neutrophils % 59.6 Lymphocytes % 29.7 Monocytes % 7.4 Eosinophils % 2.6 Basophils % 0.7 Absolute Neutrophils 4.7 Absolute Lymphocytes 2.3 Absolute Monocytes 0.6 Absolute Eosinophils 0.2 Absolute Basophils 0.1 Sodium 137.1 138.4 Potassium 3.9 4.0 Chloride 101 99 Carbon Dioxide 27 29 Anion Gap 9 10 BUN 12 13 Creatinine 0.76 0.78 Est GFR ( Amer) > 60 > 60 Est GFR (Non-Af Amer) > 60 > 60 Glucose 214 H 211 H Calcium 9.0 9.0 Impressions: Limited or Localized CT 08/04/16 19:46 IMPRESSION: Small amounts of mesenteric free fluid in the left lower quadrant with mildly dilated small bowel loops measuring 3.5 cm with small air-fluid levels, there does appear to be tethering in the mesenteric, suggestive of possible developing obstruction. KUB X-Ray 08/06/16 08:00 IMPRESSION: IMPROVED BOWEL GAS PATTERN SUGGESTIVE OF RESOLVING OBSTRUCTION/ ILEUS. Assessment & Plan - Diagnosis (1) Small bowel obstruction Is this a current diagnosis for this admission?: YesPlan: She will manage conservatively with NG tube, n.p.o., IV fluids (2) Diabetes mellitus Qualifiers: Diabetes mellitus type: type 2 Diabetes mellitus complication status: with neurologic complications Diabetes mellitus complication detail: with polyneuropathy Diabetes mellitus half-way insulin use: with digital asset coordinator use Qualified Code(s): E11.42 - Type 2 diabetes mellitus with diabetic polyneuropathy; Z79.4 - prison (current) use of insulin Is this a current diagnosis for this admission?: YesPlan: N.p.o., IV fluid 5% dextrose, Accu-Chek every 6 hours, sliding scale per protocol
--- NOTE | 2016-08-06 12:52 | PDOC PROGRESS REPORT ---
Subjective Progress Note for:: 08/06/16 Subjective:: Patient was seen by the bedside, the repeat KUB showed improvement in the small bowel obstruction, she was seen by the surgeon today. Physical Exam Vital Signs: Temp Pulse Resp BP Pulse Ox 98.4 F 87 15 128/75 H 100 08/06/16 11:59 08/06/16 11:59 08/06/16 11:59 08/06/16 11:59 08/06/16 11:59 Intake & Output 08/05/16 08/06/16 08/07/16 06:59 06:59 06:59 Intake Total 1302 310 Output Total 303 100 Balance 999 210 Weight 86 kg General appearance: PRESENT: no acute distress Eye exam: PRESENT: PERRLA Respiratory exam: PRESENT: clear to auscultation braxton Cardiovascular exam: PRESENT: +S1, +S2 GI/Abdominal exam: PRESENT: soft Neurological exam: PRESENT: alert Results Laboratory Results: 08/06/16 09:53 08/06/16 09:53 08/05/16 08/05/16 08/06/16 16:54 16:54 05:46 WBC 9.1 7.8 RBC 4.48 4.13 Hgb 13.5 12.5 Hct 41.0 37.7 MCV 91 91 MCH 30.1 30.4 MCHC 32.9 33.2 RDW 13.5 13.5 Plt Count 173 161 Seg Neutrophils % 60.6 Lymphocytes % 26.9 Monocytes % 9.6 Eosinophils % 2.3 Basophils % 0.6 Absolute Neutrophils 4.7 Absolute Lymphocytes 2.1 Absolute Monocytes 0.7 Absolute Eosinophils 0.2 Absolute Basophils 0.0 Sodium Potassium Chloride Carbon Dioxide Anion Gap BUN Creatinine 0.78 Est GFR ( Amer) > 60 Est GFR (Non-Af Amer) > 60 Glucose Calcium 08/06/16 08/06/16 08/06/16 05:46 09:53 09:53 WBC 7.9 RBC 4.21 Hgb 12.5 Hct 38.3 MCV 91 MCH 29.8 MCHC 32.7 RDW 13.4 Plt Count 180 Seg Neutrophils % 59.6 Lymphocytes % 29.7 Monocytes % 7.4 Eosinophils % 2.6 Basophils % 0.7 Absolute Neutrophils 4.7 Absolute Lymphocytes 2.3 Absolute Monocytes 0.6 Absolute Eosinophils 0.2 Absolute Basophils 0.1 Sodium 137.1 138.4 Potassium 3.9 4.0 Chloride 101 99 Carbon Dioxide 27 29 Anion Gap 9 10 BUN 12 13 Creatinine 0.76 0.78 Est GFR ( Amer) > 60 > 60 Est GFR (Non-Af Amer) > 60 > 60 Glucose 214 H 211 H Calcium 9.0 9.0 Impressions: Limited or Localized CT 08/04/16 19:46 IMPRESSION: Small amounts of mesenteric free fluid in the left lower quadrant with mildly dilated small bowel loops measuring 3.5 cm with small air-fluid levels, there does appear to be tethering in the mesenteric, suggestive of possible developing obstruction. KUB X-Ray 08/06/16 08:00 IMPRESSION: IMPROVED BOWEL GAS PATTERN SUGGESTIVE OF RESOLVING OBSTRUCTION/ ILEUS. Assessment & Plan - Diagnosis (1) Small bowel obstruction Is this a current diagnosis for this admission?: YesPlan: She is n.p.o., NG tube discontinued ,continue 5% dextrose (2) Diabetes mellitus Qualifiers: Diabetes mellitus type: type 2 Diabetes mellitus complication status: with neurologic complications Diabetes mellitus complication detail: with polyneuropathy Diabetes mellitus skilled nursing insulin use: with supervisor long goods use Qualified Code(s): E11.42 - Type 2 diabetes mellitus with diabetic polyneuropathy; Z79.4 - long term care social worker (current) use of insulin Is this a current diagnosis for this admission?: Yes
[2016-08-06] MEDS: DEXTROSE 5%-WATER 1000 ML 1,000 ML IV PRN (14:10)
[2016-08-07] MEDS: INSULIN LISPRO 100 UNIT/ML 3 ML VIAL SUBCUT PRN ×4 (00:51→18:06)
[2016-08-07] MEDS: HEPARIN SOD (PORCINE) 5,000 UNIT/ML 1 ML SYRINGE SUBCUT SCH ×3 (05:48→21:33)
--- NOTE | 2016-08-07 10:20 | Physician Advisory Note ---
Physician Advisor ProgressNote .: Pursuant to the plan for [facility], I have reviewed the medical record for this patient. Physician Advisor Statement: Possible documentation opportunities if attending agrees: 1. "Not hemodynamically stable 08/05-" (recurrent tachycardia - supports reasoning for keeping patient in hospital & changing to Inpt) 2. Does pt also have past Lt nephrectomy & schizophrenia, as listed in ED PMH? As always, if concerned about any unstable VS or abnormal labs, please comment on them - what bad things they might indicate, why they concern you - & note what doing about them. Please also document each day the potential clinical problems you are concerned could occur if pt not kept in hospital for tx at this time. (These points are olivares - if present in each note, attending's status decision should be sufficiently supported.) Discussion: 66yo female w/ chronic co-morbidities including DM-2 w/neuropathy, HTN, asthma, migrain, GERD, hyst - & per ED, also schizophrenia & Lt nephrectomy - - presented 08/04 PM to ED w/abd pain/cramps, nausea, "moderate obvious discomfort", moderate tenderness to palpation. (+) HR 113 despite home meds of both metoprolol & Coreg. RR 18, BP 175/117, WBC 10.5, Hgb 15.2, glc 200s, CT = developing SBO. ED gave NGT, IVF bolus, morphine 4mg IV x2, IV Reglan. Attending ordered NPO except ice chips, IV enalaprilat prn, morphine 2mg prn, Zofran, IVF @100, f/u labs, f/u KUBs. Status: Pt came in w/SBO, needing NGT, IVF, prn IV morphine/antiemetics. AFter 2 MNs in hospital, pt was still on NGT, & per Dr. Curry had developed lightheadedness, dizziness, more LLQ pain. KUB showed improvement in SBO, abd soft with mild LLQ tenderness. Dr. Curry d/c'd NGT, but kept pt NPO, increased IVF to 100. Attending documented on 08/06 progress note that pt was remaining NPO, with IVF, although NGT was removed. Patient has shown recurrent tachycardia on 08/05 (up to 124), and also on 08/06, & 08/07, so he has not been hemodynamically stable. Only on 08/07 is any diet ordered - clear liquids, with continued IVF. Tx & monitoring in inpatient hospital setting medically reasonable & necessary to protect pt's health, safety, & medical condition. Appropriate for Inpt status. Thanks for your help with documentation accuracy/specificity improvement! Christina Pepe MD [facility] Physician Advisor, Fellow of Hospital Medicine
[2016-08-07] MEDS: DEXTROSE 5%-WATER 1000 ML 1,000 ML IV PRN (10:25)
--- NOTE | 2016-08-07 10:47 | PDOC PROGRESS REPORT ---
Subjective Progress Note for:: 08/07/16 Subjective:: No complaints, tolerating a diet. She is up brushing her teeth at the sink this morning. Physical Exam Vital Signs: Temp Pulse Resp BP Pulse Ox 98.9 F 86 18 146/72 H 100 08/07/16 07:22 08/07/16 07:22 08/07/16 07:22 08/07/16 07:22 08/07/16 07:22 General appearance: PRESENT: no acute distress GI/Abdominal exam: PRESENT: other - Abdomen is soft nontender no peritoneal signs no rigidity. Results Impressions: Limited or Localized CT 08/04/16 19:46 IMPRESSION: Small amounts of mesenteric free fluid in the left lower quadrant with mildly dilated small bowel loops measuring 3.5 cm with small air-fluid levels, there does appear to be tethering in the mesenteric, suggestive of possible developing obstruction. KUB X-Ray 08/06/16 08:00 IMPRESSION: IMPROVED BOWEL GAS PATTERN SUGGESTIVE OF RESOLVING OBSTRUCTION/ ILEUS. Assessment & Plan - Diagnosis (1) Small bowel obstruction Is this a current diagnosis for this admission?: YesPlan: 1. Partial small bowel obstructive symptoms have resolved. She is tolerating a clear liquid diet; this can be advanced and she can be discharged home on outpatient basis.
[2016-08-07] MEDS ORDERED: ALBUTEROL SULFATE HFA (90 MCG/PUFF) 8 GM MDI (1 MDI/ER DISP) IH PRN (18:02)
--- NOTE | 2016-08-07 18:11 | PDOC PROGRESS REPORT ---
Subjective Progress Note for:: 08/07/16 Subjective:: Tolerating clear liquid diet with intent to advance as appropriate. Patient reported flatus and bowel movement earlier today. No abdominal pain, nausea or vomiting. Accuchek blood glucose remain elevated. No chest pain or difficulty with breathing. No fever or chills. Physical Exam Vital Signs: Temp Pulse Resp BP Pulse Ox 99.6 F 81 17 149/75 H 99 08/07/16 11:28 08/07/16 11:28 08/07/16 11:28 08/07/16 11:28 08/07/16 11:28 General appearance: PRESENT: no acute distress, obese Head exam: PRESENT: atraumatic, normocephalic Eye exam: PRESENT: conjunctiva pink, EOMI, PERRLA. ABSENT: scleral icterus Respiratory exam: PRESENT: clear to auscultation braxton Cardiovascular exam: PRESENT: RRR. ABSENT: diastolic murmur, rubs, systolic murmur GI/Abdominal exam: PRESENT: normal bowel sounds, soft. ABSENT: distended, guarding, mass, organolmegaly, rebound, tenderness Extremities exam: ABSENT: pedal edema Musculoskeletal exam: PRESENT: normal inspection Neurological exam: PRESENT: alert, awake, oriented to person, oriented to place , oriented to time, oriented to situation, CN II-XII grossly intact. ABSENT: motor sensory deficit Psychiatric exam: PRESENT: appropriate affect, normal mood. ABSENT: homicidal ideation, suicidal ideation Skin exam: PRESENT: dry, intact, warm. ABSENT: cyanosis, rash Results Impressions: Limited or Localized CT 08/04/16 19:46 IMPRESSION: Small amounts of mesenteric free fluid in the left lower quadrant with mildly dilated small bowel loops measuring 3.5 cm with small air-fluid levels, there does appear to be tethering in the mesenteric, suggestive of possible developing obstruction. KUB X-Ray 08/06/16 08:00 IMPRESSION: IMPROVED BOWEL GAS PATTERN SUGGESTIVE OF RESOLVING OBSTRUCTION/ ILEUS. Assessment & Plan - Diagnosis (1) Small bowel obstruction Is this a current diagnosis for this admission?: YesPlan: Improving. Off gastrointestinal decompression therapy. Advance diet as tolerated. (2) Uncontrolled type 2 diabetes mellitus with complication Is this a current diagnosis for this admission?: YesPlan: Resume her preadmission medication. Change diet to cardiac diabetic level 4 restrictions. (3) HTN (hypertension) Is this a current diagnosis for this admission?: YesPlan: D/C IV fluid. Saline lock IV access. Resume preadmission anti HTN medication. (4) HLD (hyperlipidemia) Qualifiers: Hyperlipidemia type: pure hypercholesterolemia Qualified Code(s): E78.00 - Pure hypercholesterolemia, unspecified; E78.0 - Pure hypercholesterolemia Is this a current diagnosis for this admission?: YesPlan: Obtain fasting Lipid panel. Maintain on current medication and dietary restrictions. - Time Time Spent with patient: 25-34 minutes Medications reviewed and adjusted accordingly: Yes Anticipated discharge: Home Within: Other - Inpatient Certification Based on my medical assessment, after consideration of the patient's comorbidities, presenting symptoms, or acuity I expect that the services needed warrant INPATIENT care.: Yes I certify that my determination is in accordance with my understanding of Medicare's requirements for reasonable and necessary INPATIENT services [42 CFR 412.3e].: Yes Medical Necessity: Need Close Monitoring Due to Risk of Patient Decompensation, Need For IV Fluids, Risk of Complication if Not Cared For in Hospital Post Hospital Care: D/C Supervisor Safety Deposit Documentation - Plan Summary Plan Summary: See attending physician orders.
[2016-08-07] MEDS ORDERED: ALBUTEROL SULFATE HFA (90 MCG/PUFF) 200 PUFF/8.5 GM MDI IH PRN (18:13)
[2016-08-07] MEDS: CARVEDILOL 12.5 MG TABLET PO SCH (21:33)
[2016-08-08] MEDS: INSULIN LISPRO 100 UNIT/ML 3 ML VIAL SUBCUT PRN ×2 (00:34→05:44)
[2016-08-08] MEDS: HEPARIN SOD (PORCINE) 5,000 UNIT/ML 1 ML SYRINGE SUBCUT SCH (05:44)
[2016-08-08 06:40] LABS: CHOLESTEROL 108.11 mg/dL (0-200); Direct HDL 34 mg/dL (>40); TRIGLYCERIDES 96 mg/dL (<150)
[2016-08-08 06:51] LABS: DIRECT LDL 50 mg/dL (<100)
[2016-08-08] MEDS ORDERED: INSULIN GLARGINE,HUM.REC.ANLOG 300 UNIT/3 ML INSULN.PEN SUBCUT SCH ×2 (08:00→18:00)
[2016-08-08] MEDS ORDERED: METFORMIN HCL 500 MG TABLET PO SCH (08:00)
[2016-08-08 08:36] VITALS: BP 115/78
--- NOTE | 2016-08-08 08:36 | PDOC DISCHARGE SUMMARY ---
General - Admit/Disc Date/PCP Admission Date/Primary Care Provider: 08/07/16 08:43 DERIC MCKNIGHT Discharge Date: 08/08/16 - Discharge Diagnosis (1) Small bowel obstruction Is this a current diagnosis for this admission?: Yes (2) Uncontrolled type 2 diabetes mellitus with complication Is this a current diagnosis for this admission?: Yes (3) HTN (hypertension) Is this a current diagnosis for this admission?: Yes (4) HLD (hyperlipidemia) Is this a current diagnosis for this admission?: Yes - Additional Information Discharge Diet: Cardiac, Diabetic Discharge Activity: Activity As Tolerated Home Medications: Albuterol Sulfate [Proair HFA] 2 puff IH Q4HP PRN 07/23/16 Duloxetine HCl [Cymbalta] 60 mg PO DAILY 07/23/16 Fluticasone Propionate [Flovent Hfa 110 Mcg Inhalation Aerosol 12 gm] 2 puff IH BID 07/23/16 Hydrochlorothiazide 25 mg PO DAILY 07/23/16 Insulin Glargine,Hum.rec.anlog [Lantus Solostar] 60 units SQ QAM 07/23/16 Insulin Glargine,Hum.rec.anlog [Lantus Solostar] 70 units SQ QPM 07/23/16 Insulin Lispro [Humalog Kwikpen U-100] 0 units SQ .PERSLIDINGSCALE 07/23/16 Liraglutide [Victoza 2-Jose Alberto] 0.3 ml SQ DAILY 07/23/16 Losartan Potassium [Cozaar 100 mg Tablet] 100 mg PO DAILY 07/23/16 Montelukast Sodium [Singulair 10 mg Tablet] 10 mg PO DAILY 07/23/16 Omeprazole 20 mg PO DAILY 07/23/16 Saxagliptin HCl/Metformin HCl [Kombiglyze Xr 2.5-1,000 mg Tab] 1 tab PO BID Aspirin [Aspirin 81 mg Chewable Tablet] 81 mg PO DAILY 08/05/16 Carvedilol [Coreg 12.5 mg Tablet] 12.5 mg PO Q12 08/05/16 Loratadine [Claritin] 10 mg PO DAILY 08/05/16 Multivitamins with Iron [One Daily with Iron] 1 each PO DAILY 08/05/16 History of Present Illness History of Present Illness: MELO PARDO is a 66 year old female, she has a history of type 2 diabetes mellitus, she was just recently admitted in this hospital on 07/23/2016 when she presented with chest pain at that time she had a Cardiolite Lexiscan stress test done and it was negative for acute ischemia. She went to the emergency room with abdominal pain for the last couple of days, a CAT scan of the abdomen and pelvis was done, the CAT scan demonstrated small bowel obstruction. Surgery was consulted in the emergency room but noninvasive approach was advised ,nasogastric tube was inserted to decompress the stomach and the intestines. She has multiple comorbid conditions including diabetes mellitus type 2 with complications including neuropathy Hospital Course Hospital Course: Patient was seen in consultation by the surgical team with recommendation of conservative management and gastrointestinal decompression via NGT to wall suction. Her symptoms did improve and eventually restarted on oral feeding. Patient had several bowel movement subsequently. No nausea or vomiting. No abdominal pain. Her hyperglycemia was due to underlying diabetes mellitus and D5W infusion. Likewise off her home medications for his comorbidity. She has since been restarted on her home medication and off D5W infusion. She is agreeable to discharge home today. She will follow up in the office as instructed upon discharge. Physical Exam Vital Signs: Temp Pulse Resp BP Pulse Ox 99.2 F 87 16 133/65 H 100 08/07/16 23:53 08/07/16 23:53 08/07/16 23:53 08/07/16 23:53 08/07/16 23:53 Intake & Output 08/07/16 08/08/16 08/09/16 06:59 06:59 06:59 Intake Total 2200 Balance 2200 Weight 86 kg Physical Exam: General appearance: PRESENT: no acute distress, obese Head exam: PRESENT: atraumatic, normocephalic Eye exam: PRESENT: conjunctiva pink, EOMI, PERRLA. ABSENT: scleral icterus Respiratory exam: PRESENT: clear to auscultation braxton Cardiovascular exam: PRESENT: RRR. ABSENT: diastolic murmur, rubs, systolic murmur GI/Abdominal exam: PRESENT: normal bowel sounds, soft. ABSENT: distended, guarding, mass, organomegaly, rebound, tenderness Extremities exam: ABSENT: pedal edema Musculoskeletal exam: PRESENT: normal inspection Neurological exam: PRESENT: alert, awake, oriented to person, oriented to place , oriented to time, oriented to situation, CN II-XII grossly intact. ABSENT: motor sensory deficit Psychiatric exam: PRESENT: appropriate affect, normal mood. ABSENT: homicidal ideation, suicidal ideation Skin exam: PRESENT: dry, intact, warm. ABSENT: cyanosis, rash Results Laboratory Results: 08/08/16 05:19 Triglycerides 96 Cholesterol 108.11 LDL Cholesterol Direct 50 VLDL Cholesterol 19.0 HDL Cholesterol 34 L Impressions: Limited or Localized CT 08/04/16 19:46 IMPRESSION: Small amounts of mesenteric free fluid in the left lower quadrant with mildly dilated small bowel loops measuring 3.5 cm with small air-fluid levels, there does appear to be tethering in the mesenteric, suggestive of possible developing obstruction. KUB X-Ray 08/06/16 08:00 IMPRESSION: IMPROVED BOWEL GAS PATTERN SUGGESTIVE OF RESOLVING OBSTRUCTION/ ILEUS. Qualifiers PATEINT BEING DISCHARGED WITH ANY OF THE FOLLOWING DIAGNOSIS?: No Plan Discharge Plan: D/C home today. Follow up in office as instructed upon discharge. Time Spent: Less than 30 Minutes
[2016-08-08] MEDS: CARVEDILOL 12.5 MG TABLET PO SCH (09:28)
[2016-08-08] MEDS ORDERED: [UNRECOGNIZED DRUG - OTHER] PO SCH (10:00)
[2016-08-08] MEDS ORDERED: MONTELUKAST SODIUM 10 MG TABLET PO SCH (10:00)
[2016-08-08] MEDS ORDERED: LOSARTAN POTASSIUM 50 MG TABLET PO SCH (10:00)
[2016-08-08] MEDS ORDERED: ASPIRIN 81 MG TABLET, CHEWABLE PO SCH (10:00)
[2016-08-08] MEDS ORDERED: SAXAGLIPTIN HCL PO SCH (10:00)
[2016-08-08] MEDS ORDERED: SITAGLIPTIN PHOSPHATE 50 MG TABLET PO SCH (10:00)
[2016-08-08] MEDS ORDERED: LIRAGLUTIDE SQ SCH (10:00)
[2016-08-08] MEDS ORDERED: DULOXETINE HCL 30 MG CAPSULE.DR PO SCH (10:00)
[2016-08-08] MEDS ORDERED: MULTIVITAMIN TABLET PO SCH (10:00)
[2016-08-08] MEDS ORDERED: HYDROCHLOROTHIAZIDE 25 MG TABLET PO SCH ×2 (10:00)
[2016-08-08] MEDS ORDERED: METFORMIN HCL PO SCH (10:00)
[2016-08-08] MEDS ORDERED: MULTIVITAMINS WITH IRON PO SCH (10:00)
[2016-08-08] MEDS ORDERED: FLUTICASONE PROPIONATE HFA 110 MCG/PUFF 12 GM MDI IH SCH (10:00)
== END 2016-08-08 10:25 | disposition home or self-care (01) | DRG 390 ==
LOC: ER 19:09 → EH 08-05 02:15 → UNDOADMOB 08-05 02:15 → EH 08-05 04:53 → 4N 08-05 04:53 → EH 08-05 05:22 → 4N 08-05 05:22 → OBSVTOIN 08-07 08:43
PROVIDERS: ADMIT Internal Medicine Geriatric Medicine; ATTEND Internal Medicine Geriatric Medicine
PROC: 0D9670Z Drainage of Stomach with Drainage Device, Via Natural or Artificial Opening (ICD-10-PCS; principal; 2016-08-05)
DX: K56.5 Intestinal adhesions [bands] with obstruction (postinfection) (principal); E11.65 Type 2 diabetes mellitus with hyperglycemia; I10 Essential (primary) hypertension; E78.5 Hyperlipidemia, unspecified; E11.40 Type 2 diabetes mellitus with diabetic neuropathy, unspecified; G43.909 Migraine, unspecified, not intractable, without status migrainosus; K21.9 Gastro-esophageal reflux disease without esophagitis; M19.90 Unspecified osteoarthritis, unspecified site; F20.9 Schizophrenia, unspecified; E78.00 Pure hypercholesterolemia, unspecified; J45.909 Unspecified asthma, uncomplicated; Z90.710 Acquired absence of both cervix and uterus; Z79.82 Long term (current) use of aspirin; Z79.4 Long term (current) use of insulin; Z79.899 Other long term (current) drug therapy
CPT/HCPCS: 36415; 74000; 76380; 80048; 80053; 80061; 81001; 82565; 82962; 83036; 85025; 85027; 85610; 85730; 96372; 96374; 96375; 96376; 99285; G0378; J1644; J1815; J2270; J2405; J2765; J3490; J7030; J7060

== ENCOUNTER → 2016-08-30 | Outpatient (CLI) | payer MEDICARE, OTHER ==
--- NOTE | 2016-08-30 15:13 | RADIOLOGY REPORT (SQ) ---
EXAM DESCRIPTION: CT PELVIS WITHOUT COMPLETED DATE/TIME: 08/30/2016 1:29 pm REASON FOR STUDY: PAIN IN R HIP M25.551 PAIN IN RIGHT HIP COMPARISON: None. TECHNIQUE: CT scan of the pelvis performed without intravenous or oral contrast. Images reviewed wi th soft tissue and bone windows. Reconstructed coronal and sagittal MPR images reviewed. All images stored on PACS. All CT scanners at this facility use dose modulation, iterative reconstruction, and/or weight based d osing when appropriate to reduce radiation dose to as low as reasonably achievable (ALARA). [facility]: Dose Right [facility]: CareDose [facility]: Dose Right [facility]: Teradose 4D [facility]: Smart [employer] RADIATION DOSE: Up-to-date CT equipment and radiation dose reduction techniques were employed. CTDIv ol: 11.2 mGy. DLP: 468 mGy-cm. mGy. LIMITATIONS: None. FINDINGS: PELVIC BONES: No acute fracture. No worrisome bone lesions. VISUALIZED SPINE: No acute findings. HIP(S): No acute fracture or dislocation. No worrisome bone lesions. PELVIC SOFT TISSUES: No significant findings. EXTRAPELVIC SOFT TISSUES: No significant findings. OTHER: No other significant finding. IMPRESSION: NO ACUTE OR SIGNIFICANT FINDINGS. TECHNICAL DOCUMENTATION: JOB ID: [id number] Quality ID # [id number]: Final reports with documentation of one or more dose reduction techniques (e.g., Au tomated exposure control, adjustment of the mA and/or kV according to patient size, use of iterative reconstruction technique) 2010 [employer]- All Rights Reserved
== END ==
LOC: RAD 13:07
PROVIDERS: ATTEND Family Medicine
DX: M25.551 Pain in right hip (principal)
CPT/HCPCS: 72192

== ENCOUNTER 2016-12-01 20:50 | Emergency (ER) | payer MEDICARE, OTHER ==
[2016-12-01] MEDS ORDERED: NORMAL SALINE 1000 ML 1,000 ML IV PRN (22:49)
--- NOTE | 2016-12-01 22:52 | ER Document Report ---
ED General - General Chief Complaint: Facial Swelling Stated Complaint: RGIHT ARM PAIN Time Seen by Provider: 12/01/16 22:42 Mode of Arrival: Ambulatory Information source: POA - Power of Arnp TRAVEL OUTSIDE OF THE [place] IN LAST 30 DAYS: No - HPI Patient complains to provider of: Right facial numbness and tingling, shortness of breath, chest pressure Onset: Last week Onset/Duration: Intermittent, Waxing and waning Quality of pain: Pressure Severity: Mild Pain Level: 1 Associated symptoms: Shortness of breath Notes: Patient is a 66-year-old female presenting to the emergency room complaining of decreased sensation to the right side of her face, her right arm and her right leg, symptoms have been going on intermittently for the past few weeks, they generally last a few minutes at a time, although it is lasted throughout the day today, she reports palpitations associated with it, as well as chest pressure at times, denies a headache, no vision changes, no injury or trauma - Related Data Allergies/Adverse Reactions: No Known Allergies Allergy (Verified 12/02/16 00:10) Past Medical History - General Information source: Patient - Social History Smoking Status: Never Smoker Family History: Reviewed & Not Pertinent - Past Medical History Cardiac Medical History: Reports: Hx Hypertension Denies: Hx Coronary Artery Disease, Hx Heart Attack Pulmonary Medical History: Reports: Hx Asthma, Hx Bronchitis Denies: Hx COPD, Hx Pneumonia Neurological Medical History: Reports: Hx Migraine. Denies: Hx Cerebrovascular Accident, Hx Seizures Endocrine Medical History: Reports: Hx Diabetes Mellitus Type 1, Hx Diabetes Mellitus Type 2 Renal/ Medical History: Denies: Hx Peritoneal Dialysis GI Medical History: Reports: Hx Gastroesophageal Reflux Disease Musculoskeltal Medical History: Reports Hx Arthritis Psychiatric Medical History: Reports: Hx Schizophrenia Denies: Hx Depression Past Surgical History: Reports: Hx Abdominal Surgery, Hx Hysterectomy, Hx Orthopedic Surgery - Immunizations Immunizations up to date: Yes Hx Diphtheria, Pertussis, Tetanus Vaccination: Yes Review of Systems - Review of Systems Constitutional: No symptoms reported EENT: No symptoms reported Cardiovascular: Chest pain Respiratory: Short of breath Gastrointestinal: No symptoms reported Genitourinary: No symptoms reported Female Genitourinary: No symptoms reported Musculoskeletal: No symptoms reported Skin: No symptoms reported Hematologic/Lymphatic: No symptoms reported Neurological/Psychological: See HPI -: Yes All other systems reviewed and negative Physical Exam - Vital signs Vitals: Temp Pulse Resp BP Pulse Ox 98.6 F 86 16 193/100 H 95 12/01/16 21:10 12/01/16 21:10 12/01/16 21:10 12/01/16 21:10 12/01/16 21:10 Interpretation: Hypertensive - General General appearance: Appears well, Alert In distress: None - HEENT Head: Normocephalic, Atraumatic Eyes: Normal Pupils: PERRL - Respiratory Respiratory status: No respiratory distress Chest status: Nontender Breath sounds: Normal Chest palpation: Normal - Cardiovascular Rhythm: Regular Heart sounds: Normal auscultation Murmur: No - Abdominal Inspection: Normal Distension: No distension Bowel sounds: Normal Tenderness: Nontender Organomegaly: No organomegaly - Back Back: Normal, Nontender - Extremities General upper extremity: Normal inspection, Nontender, Normal color, Normal ROM , Normal temperature General lower extremity: Normal inspection, Nontender, Normal color, Normal ROM , Normal temperature, Normal weight bearing. No: Daysi's sign - Neurological Neuro grossly intact: Yes Cognition: Normal Orientation: AAOx4 [place] Coma Scale Eye Opening: Spontaneous Kayleen Coma Scale Verbal: Oriented Kayleen Coma Scale Motor: Obeys Commands Kayleen Coma Scale Total: 15 Speech: Normal Motor strength normal: LUE, LLE. 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 Sensory: Other - Patient reports decreased sensation to the right side of her face, her right hand and her right lower extremity - Psychological Associated symptoms: Normal affect, Normal mood - Skin Skin Temperature: Warm Skin Moisture: Dry Skin Color: Normal Course - Re-evaluation Re-evalutation: 12/02/16 00:20 Lab and imaging findings were discussed with patient at bedside which are unremarkable, symptoms have been going on intermittently for at least the past week, no abnormalities noted on CT scan or with labs, patient will be discharged with instructions for follow-up with her primary care provider and advised to return if any additional concerns, patient acknowledges understanding and agreement with this plan - Vital Signs Vital signs: Temp Pulse Resp BP Pulse Ox 98.6 F 86 15 158/83 H 96 12/01/16 21:10 12/01/16 21:10 12/01/16 23:46 12/01/16 23:46 12/01/16 23:46 - Laboratory Result Diagrams: 12/01/16 23:25 12/01/16 23:25 Laboratory results interpreted by me: 12/01/16 12/01/16 23:25 23:25 Eosinophils % 8.2 H Glucose 145 H Creatine Kinase 244 H - Diagnostic Test Radiology reviewed: Image reviewed, Reports reviewed Discharge - Discharge Clinical Impression: Muscle weakness HTN (hypertension) Qualifiers: Hypertension type: unspecified Qualified Code(s): I10 - Essential (primary) hypertension Chest pain Qualifiers: Chest pain type: unspecified Qualified Code(s): R07.9 - Chest pain, unspecified Condition: Stable Disposition: HOME, SELF-CARE Instructions: Chest Pain of Unclear Cause ([facility]), Arm Pain, Nonspecific ([facility]), Palpitations (Irregular or Rapid Heartrate) ([facility]) Additional Instructions: Follow up with your primary care provider in one to 2 days. Return to the emergency room immediately if symptoms worsen or any additional concerns.
--- NOTE | 2016-12-01 23:19 | RADIOLOGY REPORT (SQ) ---
EXAM DESCRIPTION: CT HEAD WITHOUT COMPLETED DATE/TIME: 12/01/2016 11:09 pm REASON FOR STUDY: right facial numbness COMPARISON: 07/26/2014 TECHNIQUE: Axial images acquired through the brain without intravenous contrast. Images reviewed wi th bone, brain and subdural windows. Images stored on PACS. All CT scanners at this facility use dose modulation, iterative reconstruction, and/or weight based d osing when appropriate to reduce radiation dose to as low as reasonably achievable (ALARA). [facility]: Dose Right [facility]: CareDose [facility]: Dose Right [facility]: Teradose 4D [facility]: Smart [employer] RADIATION DOSE: Up-to-date CT equipment and radiation dose reduction techniques were employed. CTDIv ol: 64.6 mGy. DLP: 1163 mGy-cm. mGy. LIMITATIONS: None. FINDINGS: VENTRICLES: Normal size and contour. CEREBRUM: No masses. No hemorrhage. No midline shift. No evidence for acute infarction. Normal gra y/white matter differentiation. No areas of low density in the white matter. CEREBELLUM: No masses. No hemorrhage. No alteration of density. No evidence for acute infarction. EXTRAAXIAL SPACES: No fluid collections. No masses. ORBITS AND GLOBE: No intra- or extraconal masses. Normal contour of globe without masses. CALVARIUM: No fracture. PARANASAL SINUSES: No fluid or mucosal thickening. SOFT TISSUES: No mass or hematoma. OTHER: No other significant finding. IMPRESSION: NO ACUTE INTRACRANIAL PROCESS. NO SIGNIFICANT CHANGE FROM PRIOR STUDY. EVIDENCE OF ACUTE STROKE: NO. COMMENT: Quality ID # [id number]: Final reports with documentation of one or more dose reduction techniques (e.g., Automated exposure control, adjustment of the mA and/or kV according to patient size, use of iterative reconstruction technique) TECHNICAL DOCUMENTATION: JOB ID: [id number] [employer]- All Rights Reserved
--- NOTE | 2016-12-01 23:21 | RADIOLOGY REPORT (SQ) ---
EXAM DESCRIPTION: CHEST PA/LAT COMPLETED DATE/TIME: 12/01/2016 11:06 pm REASON FOR STUDY: sob COMPARISON: 07/27/2015 EXAM PARAMETERS: NUMBER OF VIEWS: two views TECHNIQUE: Digital Frontal and Lateral radiographic views of the chest acquired. RADIATION DOSE: NA LIMITATIONS: none FINDINGS: LUNGS AND PLEURA: No opacities, masses or pneumothorax. No pleural effusion. MEDIASTINUM AND HILAR STRUCTURES: No masses or contour abnormalities. HEART AND VASCULAR STRUCTURES: Heart normal size. No evidence for failure. BONES: No acute findings. HARDWARE: None in the chest. OTHER: No other significant finding. IMPRESSION: NO SIGNIFICANT RADIOGRAPHIC FINDING IN THE CHEST. TECHNICAL DOCUMENTATION: JOB ID: [id number] [employer]- All Rights Reserved
[2016-12-01 23:39] LABS: PROTHROMBIN TIME 14.4 SEC (11.4-15.4)
[2016-12-01 23:40] LABS: ABSOLUTE EOSINOPHILS # (AUTO) 0.6 10^3/uL (0.0-0.6); ABSOLUTE LYMPHOCYTES (AUTO) 2.3 10^3/uL (0.5-4.7); ABSOLUTE MONOCYTES (AUTO) 0.5 10^3/uL (0.1-1.4); ABSOLUTE NEUT (AUTO) 3.9 10^3/uL (1.7-8.2); BASOPHILS % (AUTO) 0.4 % (0-2); EOSINOPHILS % (AUTO) 8.2 % (0-6); HEMOGLOBIN 12.5 g/dL (12.0-15.5); HGB HCT DIFFERENCE 1.5; LYMPHOCYTES % (AUTO) 30.7 % (13-45); MEAN CORPUSCULAR HEMOGLOBIN 31.2 pg (27.0-33.4); MEAN CORPUSCULAR HGB CONC 34.8 g/dL (32.0-36.0); MEAN CORPUSCULAR VOLUME 90 fl (80-97); MONOCYTES % (AUTO) 7.2 % (3-13); PARTIAL THROMBOPLASTIN TIME 29.8 SEC (23.5-35.8); RED BLOOD COUNT 4.01 10^6/uL (3.72-5.28); RED CELL DISTRIBUTION WIDTH 13.7 % (11.5-14.0); SEGMENTED NEUTROPHILS % (AUTO) 53.5 % (42-78); WHITE BLOOD COUNT 7.3 10^3/uL (4.0-10.5)
[2016-12-01 23:51] LABS: ALANINE AMINOTRANSFERASE 37 U/L (9-52); ALKALINE PHOSPHATASE 72 U/L (38-126); ANION GAP 11 (5-19); ASPARTATE AMINO TRANSFERASE 35 U/L (14-36); BILIRUBIN,DIRECT 0.4 mg/dL (0.0-0.4); BILIRUBIN,TOTAL 0.6 mg/dL (0.2-1.3); BLOOD UREA NITROGEN 11 mg/dL (7-20); CALCIUM 9.3 mg/dL (8.4-10.2); CARBON DIOXIDE 26 mmol/L (22-30); CHLORIDE 105 mmol/L (98-107); CREATINE KINASE 244 U/L (30-135); CREATININE RESULT 0.83 mg/dL (0.52-1.25); GLUCOSE 145 mg/dL (75-110); POTASSIUM 3.8 mmol/L (3.6-5.0); SODIUM 141.6 mmol/L (137-145); TOTAL PROTEIN 7.6 g/dL (6.3-8.2)
[2016-12-02 00:04] LABS: CREATINE KINASE MB 2.02 ng/mL (<4.55); TROPONIN I 0.013 ng/mL
[2016-12-02 01:17] VITALS: BP 150/77
--- NOTE | 2016-12-02 02:04 | EKG REPORT ---
SEVERITY:- NORMAL ECG - SINUS RHYTHM : Confirmed by: Leeann Barrera MD 02-Dec-2016 02:03:41
== END 2016-12-02 01:17 | disposition home or self-care (01) ==
LOC: ER 20:50
DX: I10 Essential (primary) hypertension (principal); R07.9 Chest pain, unspecified; R53.1 Weakness; R22.0 Localized swelling, mass and lump, head; M79.601 Pain in right arm; R06.02 Shortness of breath
CPT/HCPCS: 93005; 99284; 96360; 36415; 82553; 82550; 85025; 85610; 85730; 80053; 84484; 71020; 70450; 93010; J7030

== ENCOUNTER → 2017-08-02 | Outpatient (CLI) | payer MEDICARE, MEDICAID ==
--- NOTE | 2017-08-03 08:42 | XCELERA REPORT ---
[address] [address] Lower Extremity Arterial Evaluation Name: MELO PARDO Age: 67 yrs Gender: Female : 1950 Patient Status: Outpatient Patient Location: Study Date: 08/02/2017 01:19 PM Procedure: A color flow and duplex scan of the lower extremity arteries was performed bilaterally with velocity and waveform anaylsis. Reason For Study: SWELLING Ordering Physician: HERNÁN SWANSON Performed By: Lidia Castaneda Measurements and Calculations Right Left Prox PFA PSV 91.7 66.9 cm/sec Prox SFA PSV 106.5 103.7 cm/sec Mid SFA PSV 109.3 91.1 cm/sec Dist SFA PSV 92.2 85.6 cm/sec Prox Pop A PSV 62.4 53.7 cm/sec Mid EDSON PSV 56.5 cm/sec Dist EDSON PSV 118.1 cm/sec Mid PATIENT TRANSPORTATION DRIVER PSV 61.1 cm/sec Dist PATIENT TRANSPORTATION DRIVER PSV 92.2 cm/sec Right Side Arterial Evaluation Normal velocity and triphasic waveforms noted from the Common Femoral artery to the infrageniculate vessels. Biphasic int he Dorsalis Pedis. 0-19% stenosis at the Dorsalis Pedis artery. Ankle Brachial index was not done. Left Side Arterial Evaluation Normal velocity and triphasic waveforms noted from the Common Femoral artery to the infrageniculate vessels. Biphasic int he Dorsalis Pedis. 0-19% stenosis at the Dorsalis Pedis artery. Ankle Brachial index was not done. Interpretation Summary Mild hemodynamically significant lesions in the bilateral lower extremities, on duplex imaging, at rest. : HERNÁN SWANSON > Antonio Calixto
== END ==
LOC: SP 13:01
PROVIDERS: ATTEND Podiatrist Foot & Ankle Surgery
DX: I73.9 Peripheral vascular disease, unspecified (principal)
CPT/HCPCS: 93925

== ENCOUNTER → 2017-09-20 | Outpatient (CLI) | payer MEDICAID, MEDICARE ==
[2017-09-20 11:18] LABS: ABSOLUTE EOSINOPHILS # (AUTO) 0.5 10^3/uL (0.0-0.6); ABSOLUTE LYMPHOCYTES (AUTO) 1.8 10^3/uL (0.5-4.7); ABSOLUTE MONOCYTES (AUTO) 0.5 10^3/uL (0.1-1.4); ABSOLUTE NEUT (AUTO) 3.5 10^3/uL (1.7-8.2); BASOPHILS % (AUTO) 0.7 % (0-2); EOSINOPHILS % (AUTO) 7.9 % (0-6); HEMATOCRIT 38.5 % (36.0-47.0); HEMOGLOBIN 13.1 g/dL (12.0-15.5); LYMPHOCYTES % (AUTO) 28.7 % (13-45); MEAN CORPUSCULAR HEMOGLOBIN 31.1 pg (27.0-33.4); MEAN CORPUSCULAR VOLUME 91 fl (80-97); MONOCYTES % (AUTO) 7.5 % (3-13); PLATELET COUNT 220 10^3/uL (150-450); RED BLOOD COUNT 4.22 10^6/uL (3.72-5.28); RED CELL DISTRIBUTION WIDTH 13.4 % (11.5-14.0); SEGMENTED NEUTROPHILS % (AUTO) 55.2 % (42-78); TOTAL CELLS COUNTED % (AUTO) 100 %; WHITE BLOOD COUNT 6.4 10^3/uL (4.0-10.5)
== END ==
LOC: LAB 10:52
PROVIDERS: ATTEND Physician Assistant Surgical
DX: R59.0 Localized enlarged lymph nodes (principal)
CPT/HCPCS: 36415; 85025

== ENCOUNTER → 2017-12-11 | Outpatient (CLI) | payer MEDICARE, OTHER ==
--- NOTE | 2017-12-11 14:15 | RADIOLOGY REPORT (SQ) ---
EXAM DESCRIPTION: NM 3 PHASE BONE SCAN COMPLETED DATE/TIME: 12/11/2017 1:51 pm REASON FOR STUDY: PAIN IN RIGHT HIP (M25.551) M25.551 PAIN IN RIGHT HIP COMPARISON: CT pelvis 08/30/2016 Outside films, AP pelvis, right hip AP and frog-leg view, bilateral knees from 12/07/2017 RADIONUCLIDE AND DOSE: 21.2 millicuries Tc99m MDP. The route of agent administration: Intravenous. Please note that there was infiltration in the antecubital fossa of 19.9 mCi technetium 99 M HDP ADDITIONAL DRUGS AND DOSES: None. TECHNIQUE: Following injection of the radiopharmaceutical, serial blood flow images acquired. Equil ibrium blood pool images then acquired. Routine delayed images at 3 hours acquired of the areas of c linical concern with additional focused images as needed. AREA OF INTEREST: Bilateral hips LIMITATIONS: None. FINDINGS: VASCULAR FLOW IMAGES: No asymmetry or focal areas of hyperemia. BLOOD POOL IMAGES: No asymmetry or focal areas of soft-tissue hyper-perfusion. BONES: Delayed images of the bony pelvis and hips are unremarkable. There is increased uptake along the posterior elements at about the L3 level. This could be due to a dvanced facet arthropathy. Consider plain film and cross-sectional imaging correlation. OTHER: No other significant finding. IMPRESSION: No increased uptake over the pelvis, SI joints or hips. Increased uptake right posterior elements at about the L3 level, could be due to advanced facet arthr opathy. Consider follow-up plain films and cross-sectional imaging correlation COMMENT: Quality measure 147: Current bone scan is compared with any available plain radiographs, p rior bone scans, and CT/MRI. TECHNICAL DOCUMENTATION: JOB ID: [id number] [employer]- All Rights Reserved Reading location - IP/workstation name: [email or web address]
== END ==
LOC: RAD 09:50
PROVIDERS: ATTEND Family Medicine
DX: M25.551 Pain in right hip (principal)
CPT/HCPCS: 78315; A9561; Q9969

== ENCOUNTER → 2018-02-05 | Outpatient (CLI) | payer MEDICARE, MEDICAID ==
--- NOTE | 2018-02-05 15:49 | WOMENS IMAGING REPORT ---
EXAM DESCRIPTION: 3D SCREENING MAMMO BILAT COMPLETED DATE/TIME: 02/05/2018 2:20 pm REASON FOR STUDY: BILATERAL SCREENING MAMMO 3D/Z12.31 Z12.31 ENCNTR SCREEN MAMMOGRAM FOR MALIGNANT NEOPLASM OF MYCHAL COMPARISON: Multiple since 2009 TECHNIQUE: Standard craniocaudal and mediolateral oblique views of each breast recorded using digita l acquisition and breast tomosynthesis. LIMITATIONS: None. FINDINGS: No masses, calcifications or architectural distortion. No areas of suspicion. Read with the assistance of CAD. .[facility] R2 Cenova Version 1.3 .[facility] - R2 Cenova Version 1.3 .[facility] - R2 Cenova Version 2.4 .[facility] [place]2 Cenova Version 2.4 .[facility] - R2 [employer] Supervisor Version 9.2 IMPRESSION: NORMAL MAMMOGRAM. BIRADS 1. BREAST DENSITY: a. The breasts are almost entirely fatty. BIRAD: 1 NEGATIVE RECOMMENDATION: ROUTINE SCREENING Please continue yearly bilateral screening tomosynthesis/mammography January 2019 COMMENT: The patient has been notified of the results by letter per SA requirements. Additional no tification policies are in place for contacting patient with suspicious or incomplete findings. Quality ID #[id number]: The [employer] recommends an annual screening mammogram for women aged 40 years or over. This facility utilizes a reminder system to ensure that all patients receive reminder letters, and/or direct phone calls for appointments. This includes reminders for routine scr eening mammograms, diagnostic mammograms, or other Breast Imaging Interventions when appropriate. Th is patient will be placed in the appropriate reminder system. The [employer] (ACR) has developed recommendations for screening MRI of the breast s in certain patient populations, to be used in conjunction with mammography. Breast MRI surveillanc e may be appropriate for women with more than 20% lifetime risk of developing breast cancer as deter mined by genetic testing, significant family history of the disease, or history of mantle radiation f or Hodgkins Disease. ACR Practice Guidelines 2008. DBT Technology DBT is a type of tomographic mammography. With conventional mammography, overlapping breast tissue ma y make lesions difficult to detect, even with good compression. DBT uses an x-ray tube that rotates a round the breast, taking images at different angles. These images are then combined to create thin sl ices of the breast that the radiologist can view as a 3D reconstruction. The Si TV unit can perform full-field digital mammograms (2D imaging); or DBT (3D imaging); or both, in a combination mode that quickly performs both the mammogram and the tomosynthesis scan while the breast is still compressed. PQRS 6045F: Fluoroscopic imaging is not utilized for breast tomosynthesis. TECHNICAL DOCUMENTATION: FINDING NUMBER: (1) ASSESSMENT: (1) JOB ID: [id number] [employer]- All Rights Reserved Reading location - IP/workstation name: [email or web address]
== END ==
LOC: WI 13:29
PROVIDERS: ATTEND Internal Medicine Geriatric Medicine
DX: Z12.31 Encounter for screening mammogram for malignant neoplasm of breast (principal)
CPT/HCPCS: 77063; 77067

== ENCOUNTER → 2018-09-17 | Outpatient (CLI) | payer MEDICAID, MEDICARE ==
--- NOTE | 2018-09-17 16:58 | RADIOLOGY REPORT (SQ) ---
EXAM DESCRIPTION: CT CERVICAL SPINE WITHOUT COMPLETED DATE/TIME: 09/17/2018 1:16 pm REASON FOR STUDY: M54.2 CERVICALGIA M54.2 CERVICALGIA COMPARISON: 11/05/2006 TECHNIQUE: Axial images acquired through the cervical spine without intravenous contrast. Images re viewed with lung, soft tissue and bone windows. Reconstructed coronal and sagittal MPR images review ed. Images stored on PACS. All CT scanners at this facility use dose modulation, iterative reconstruction, and/or weight based d osing when appropriate to reduce radiation dose to as low as reasonably achievable (ALARA). [facility]: Dose Right [facility]: CareDose [facility]: Dose Right [facility]: Teradose 4D [facility]: Smart [employer] RADIATION DOSE: CT Rad equipment meets quality standard of care and radiation dose reduction techniq ues were employed. CTDIvol: 23.2 mGy. DLP: 495 mGy-cm. mGy. LIMITATIONS: None. FINDINGS: ALIGNMENT: Anatomic. MINERALIZATION: Normal. VERTEBRAL BODIES: No fractures or dislocation. DISCS: Multilevel disc space narrowing with osteophytes. FACETS, LATERAL MASSES, POSTERIOR ELEMENTS: Facet arthropathy. No fractures. No dislocation. No ac justin findings. HARDWARE: None in the spine. VISUALIZED RIBS: No fractures. LUNG APICES AND SOFT TISSUES: No acute findings. OTHER: No other significant finding. IMPRESSION: CHRONIC DEGENERATIVE CHANGES. NO ACUTE FINDINGS. TECHNICAL DOCUMENTATION: JOB ID: [id number] [id number] Quality ID # [id number]: Final reports with documentation of one or more dose reduction techniques (e.g., Au tomated exposure control, adjustment of the mA and/or kV according to patient size, use of iterative reconstruction technique) 2010 [employer]- All Rights Reserved Reading location - IP/workstation name: [employer]
== END ==
LOC: RAD 13:08
PROVIDERS: ATTEND Internal Medicine Geriatric Medicine
DX: M50.30 Other cervical disc degeneration, unspecified cervical region (principal)
CPT/HCPCS: 72125

== ENCOUNTER 2018-10-01 16:13 | Emergency (ER) | payer MEDICARE ==
[2018-10-01] MEDS ORDERED: ACETAMINOPHEN 325 MG TABLET PO ONE (16:31)
--- NOTE | 2018-10-01 16:37 | ER Document Report ---
ED Allergic Reaction - General Chief Complaint: Allergic Reaction Stated Complaint: BEE STING Primary Care Provider: DERIC MCKNIGHT MD [Primary Care Provider] - Follow up as needed Notes: Patient was mowing grass when she went over a nest of bees which she immediately attacked her and stung her multiple times on the left face and her left arm. She had significant swelling of the face and less so of the arm. She did have itching all over but did not develop a rash. She had swelling of the left side of her face but not her tongue or intraoral structures. She went to a local urgent care and was given an injection of Solu-Medrol IM and epinephrine 0.5 mg IM. Was transported here by EMS who gave her 50 mg of Benadryl. Patient says she is feeling much better now. TRAVEL OUTSIDE OF THE [place] IN LAST 30 DAYS: No - Related Data Allergies/Adverse Reactions: No Known Allergies Allergy (Verified 12/02/16 00:10) Past Medical History - Social History Smoking Status: Unknown if Ever Smoked Family History: Reviewed & Not Pertinent Patient has suicidal ideation: No Patient has homicidal ideation: No - Past Medical History Cardiac Medical History: Reports: Hx Hypertension Pulmonary Medical History: Reports: Hx Asthma, Hx Bronchitis Neurological Medical History: Reports: Hx Migraine Endocrine Medical History: Reports: Hx Diabetes Mellitus Type 1, Hx Diabetes Mellitus Type 2 GI Medical History: Reports: Hx Gastroesophageal Reflux Disease Musculoskeletal Medical History: Reports Hx Arthritis Psychiatric Medical History: Reports: Hx Schizophrenia Past Surgical History: Reports: Hx Abdominal Surgery, Hx Hysterectomy, Hx Orthopedic Surgery - Immunizations Immunizations up to date: Yes Hx Diphtheria, Pertussis, Tetanus Vaccination: Yes Review of Systems - Review of Systems Notes: REVIEW OF SYSTEMS: CONSTITUTIONAL : Denies fever. EENT: Denies eye, ear, nose or mouth or throat pain or other symptoms. Vital signs are all essentially normal. CARDIOVASCULAR: Denies chest pain. RESPIRATORY: Denies cough, chest congestion, or shortness of breath. GASTROINTESTINAL: Denies abdominal pain or nausea, vomiting, or diarrhea. GENITOURINARY: Denies difficulty or painful urinating, urinary frequency, blood in urine. MUSCULOSKELETAL: Denies back or neck pain. Denies joint pain or swelling. SKIN: Denies rash. Did have itching all over. Also has pain and some swelling at the local injection site of the left face and left arm. NEUROLOGICAL: Denies LOC or altered mental status. Denies headache. Denies sensory loss or motor deficits. ALL OTHER SYSTEMS REVIEWED AND NEGATIVE. Physical Exam - Vital signs Vitals: Resp Pulse Ox 32 H 94 10/01/18 16:31 10/01/18 16:31 Interpretation: Normal Notes: PHYSICAL EXAMINATION: GENERAL: Well-appearing, in no acute distress. HEAD: Atraumatic, normocephalic. Face has some soft tissue swelling in the left voodoo and left maxillary region from the sting site. No stinger seen. Mild tenderness to press on this area. EYES: Eyelids are moderately swollen, but patient can open her eyes and see. Pupils equal round and reactive to light, extraocular movements intact. ENT: oropharynx clear without exudates. Moist mucous membranes. No mucous membrane swelling orally. Tongue normal size. NECK: Normal range of motion, supple. LUNGS: Breath sounds clear and equal bilaterally. This and no rhonchi heard. No rales heard. HEART: Regular rate and rhythm without murmurs. ABDOMEN: Soft, nontender. No guarding or rebound. No masses. BACK: No tenderness throughout entire back. EXTREMITIES: Normal range of motion without pain. NEUROLOGICAL: Normal speech, normal gait. Normal sensory, motor, and reflex exams. Awake, alert, and oriented x3. Cranial nerves normal. PSYCH: Normal mood, normal affect. SKIN: Warm, dry, no rashes. Patient was stung multiple places of the left side of her face and the left forearm. Several of these areas are swollen modestly. Course - Re-evaluation Re-evalutation: 10/01/18 18:11 Patient was given 20 mg of Pepcid IV and then observed for couple of hours. She had improvement in her symptoms and no, shortness of breath, wheezing, rash, etc. The swelling of her face seems to be subsiding. Nursing staff was concerned about patient saying she has some difficulty breathing in the recumbent position but is relieved when she sits up. I went and discussed this concern with the patient. She says that she has felt that way for years. She is not able to lay down and sleep recumbent for many years. It is no different now. Her O2 sat is 99% on room air. Lung tavarez are clear both on the right and the left posteriorly and anteriorly. No edema of her extremities. I do not think that this merits any further investigation at this time. - Vital Signs Vital signs: Temp Pulse Resp BP Pulse Ox 15 195/98 H 97 10/01/18 17:01 10/01/18 17:00 10/01/18 17:01 Discharge - Discharge Clinical Impression: Bee sting, Allergic reaction Condition: Stable Disposition: HOME, SELF-CARE Additional Instructions: Insect Sting You've been stung by an insect. The venom can cause pain, redness, and swelling. Right after the sting, we sometimes use adrenaline to reduce the reaction to the venom. This also stops any allergic reaction. You should apply cold compresses, rest and elevate the affected part, and take antihistamines. A more severe, itchy red swelling sometimes develops the next day. This is a local allergic reaction to the venom. This local allergy isn't dangerous. We treat it with cortisone-type medicine and antihistamines. Sometimes we use antibiotics if we're worried about infection. If you develop a fever, chills, a red streak, or swollen glands in the area of the bite, infection may be starting. Return at once. Insect stings from the bee and hornet family may cause a severe allergic reaction. Symptoms include hoarseness, shortness of breath, general redness of the skin, general itching, or lightheadedness. If any of these symptoms occur, you'll be treated with adrenalin and cortisone-like steroids. You should carry an "Anaphylaxis Kit" with you in the summer months so you can administer these medications to yourself before getting emergency medical care. ACUTE ALLERGIC REACTION: Your symptoms are due to an allergic reaction. Allergy can cause hives, swelling of the hands, feet, and face, hoarseness, and difficulty swallowing or breathing. It may be due to exposure to medication, animal dander, foods, infection, or insect bites. Medication is a common cause, even when prior use of this same medication caused no problems. Acute treatment may include adrenalin and antihistamines. Usually, the specific allergic agent can't be identified unless repeated episodes occur. Home treatment includes the following: (1) Stop any suspicious medications. This will be discussed with you. (2) Oral antihistamines for the next four to five days. Example, diphenhydramine (Benadryl) every four hours. (3) You may also use cimetidine (Tagamet), ranitidine (Zantac), or famotidine (Pepcid) every four hours if diphenhydramine is not controlling itching and hives. (4) Avoid aspirin until the hives completely disappear. (5) Avoid hot baths or showers until the hives are completely gone. Call the doctor if faintness, difficulty swallowing, tightness in the chest, or wheezing occurs. EPINEPHRINE: An injection of epinephrine (also called adrenalin) is used to treat allergic reactions, asthma, and some other medical conditions. It is a stimulant medication that consticts blood vessels, relaxes smooth muscles such as in the bronchioles of the lung, elevates blood pressure, and increases heart rate. It can temporarily make you feel very nervous and shakey, but it's affects last only a short time, about 15 to 30 minutes at most. STEROID MEDICATION INJECTION: You have been given an injection of medicine of the cortisone/steroid class. This medication is used to control inflammation or allergy. It is often continued as a pill for a short period of time, until the acute process subsides. There are usually no side effects from short-term use of cortisone-like medications. Some persons feel an increased sense of well-being and are not sleepy at bedtime. Long-term use of cortisone medications is best avoided, unless required for a severe condition. If your condition does not remit, or relapses after the course of corticosteroid medication, you should consult your physician. ACID-SUPPRESSING MEDICATION: You have a prescription for medicine which reduces the stomach's secretion of acid. Examples include Zantac, Tagament, and Pepcid. These drugs are often used to allow healing of ulcers or esophagitis. They may be needed to prevent recurrence of ulcers in some patients, or to prevent damage from acid reflux in the esophagus. Take all medication as prescribed, even after the pain is gone. Regular antacids may be added as needed if you have symptoms while taking this medicine. These medications sometimes are prescribed for allergic reactions because they have anti-histaminic effects and relieve the rash and itching of the reaction. There are usually no side effects from this medication. But, in rare cases and particularly in the elderly, serious problems can occur. Contact your doctor if there is fever, rash, hallucinations, confusion, or unusual bruising. Contact your doctor at once if you develop lightheadedness, black or bloody stool, or bloody vomitus. ANTIHISTAMINES: An antihistamine has been given and/or prescribed to control your symptoms. Antihistamines are used for many reasons, including itching, watering eyes, runny nose, allergic swelling, hives, and insect stings. Antihistamines may cause drowsiness, especially with the first dose. Do not operate machinery or drive while under the effects of the medication. Other common side effects include dry mouth and eyes. In older persons, antihistamines can occasionally cause urinary retention, constipation, and trouble focusing the eyes. Do not combine the medication with alcohol, or with any other medication without talking to your doctor. USE OF DIPHENHYDRAMINE: The use of diphenhydramine (Benadryl) has been recommended to control allergic symptoms. The 25 mg strength is available over- the-counter, as well as the elixir. This antihistamine is used for many symptoms. It's useful for itching, watering eyes and nose, allergic swelling, hives, and insect stings. The medication can be repeated four times daily. Age Elixir (12.5 mg/tsp) 25 mg pill adult 1-2 tabs Antihistamines may cause drowsiness, especially with the first dose. Do not operate machinery or drive while under the effects of the medication. Do not combine the medication with alcohol, or with any other medication without talking to your doctor. FOLLOW-UP CARE: If you have been referred to a physician for follow-up care, call the physicians office for an appointment as you were instructed or within the next two days. If you experience worsening or a significant change in your symptoms, notify the physician immediately or return to the Emergency Department at any time for re-evaluation. Referrals: DERIC MCKNIGHT MD [Primary Care Provider] - Follow up as needed
[2018-10-01 17:26] VITALS: BP 195/98
== END 2018-10-01 18:49 | disposition home or self-care (01) ==
LOC: ER 16:13
DX: T63.441A Toxic effect of venom of bees, accidental (unintentional), initial encounter (principal); R22.0 Localized swelling, mass and lump, head; M79.89 Other specified soft tissue disorders; R06.00 Dyspnea, unspecified; I10 Essential (primary) hypertension; J45.909 Unspecified asthma, uncomplicated; E11.9 Type 2 diabetes mellitus without complications
CPT/HCPCS: 99284; A9270

== ENCOUNTER 2019-03-11 21:38 | Emergency (ER) | payer MEDICAID, MEDICARE ==
[2019-03-11] MEDS ORDERED: IPRATROPIUM/ALBUTEROL 0.5-2.5 MG/3 ML AMPUL NEB ONE ×2 (21:44→21:45)
[2019-03-11] MEDS ORDERED: METHYLPREDNISOLONE INJ 125 MG/2 ML SDV ONE (21:44)
[2019-03-11] MEDS ORDERED: PREDNISONE 20 MG TABLET PO ONE (21:45)
[2019-03-11] MEDS: ALBUTEROL SULFATE 0.083% NEB 2.5 MG/3 ML AMPUL NEB SCH ×2 (22:04→22:22)
[2019-03-11] MEDS ORDERED: ONDANSETRON HCL INJ/PF 4 MG/2 ML SDV IV ONE (22:05)
[2019-03-11] MEDS ORDERED: ONDANSETRON HCL INJ/PF 4 MG/2 ML SDV ONE (22:07)
--- NOTE | 2019-03-11 22:27 | RADIOLOGY REPORT (SQ) ---
EXAM DESCRIPTION: [facility]: XR CHEST 1 VIEW CLINICAL HISTORY: 69 years Female, diff breathing COMPARISON: 12/01/2016 FINDINGS: Lungs are clear, with no focal infiltrate, pneumothorax, or pleural effusion. Mediastinum is within normal limits for this positioning. Bony structures are unremarkable. IMPRESSION: 1. No acute pulmonary findings.
[2019-03-11 22:37] LABS: ABSOLUTE BASOPHILS # (AUTO) 0.1 10^3/uL (0.0-0.2); ABSOLUTE EOSINOPHILS # (AUTO) 0.1 10^3/uL (0.0-0.6); ABSOLUTE LYMPHOCYTES (AUTO) 2.9 10^3/uL (0.5-4.7); ABSOLUTE MONOCYTES (AUTO) 0.7 10^3/uL (0.1-1.4); ABSOLUTE NEUT (AUTO) 4.7 10^3/uL (1.7-8.2); BASOPHILS % (AUTO) 0.9 % (0-2); EOSINOPHILS % (AUTO) 1.2 % (0-6); HEMATOCRIT 42.9 % (36.0-47.0); HEMOGLOBIN 14.6 g/dL (12.0-15.5); LYMPHOCYTES % (AUTO) 34.5 % (13-45); MEAN CORPUSCULAR HEMOGLOBIN 31.1 pg (27.0-33.4); MEAN CORPUSCULAR HGB CONC 34.1 g/dL (32.0-36.0); MEAN CORPUSCULAR VOLUME 91 fl (80-97); MONOCYTES % (AUTO) 8.2 % (3-13); PLATELET COUNT 243 10^3/uL (150-450); RED BLOOD COUNT 4.71 10^6/uL (3.72-5.28); SEGMENTED NEUTROPHILS % (AUTO) 55.2 % (42-78); TOTAL CELLS COUNTED % (AUTO) 100 %; WHITE BLOOD COUNT 8.5 10^3/uL (4.0-10.5)
--- NOTE | 2019-03-11 22:52 | ER Document Report ---
ED General - General Chief Complaint: Shortness Of Breath Stated Complaint: SHORTNESS OF BREATH/VOMITING Time Seen by Provider: 03/11/19 22:50 Primary Care Provider: DERIC MCKNIGHT MD [Primary Care Provider] - Follow up as needed Information source: Patient TRAVEL OUTSIDE OF THE [place] IN LAST 30 DAYS: No - HPI Onset: Last week Onset/Duration: Gradual Quality of pain: No pain Severity: Moderate Pain Level: Denies Associated symptoms: Nonproductive cough, Shortness of breath, Other - wheezing, exertional dyspnea Exacerbated by: Walking, Other - exertion, laying flat Relieved by: Other - rest, sitting up right Similar symptoms previously: Yes - patient has had asthma symptoms before but she doesnt usually get as SOB Recently seen / treated by doctor: No Notes: 69 year old female with a history of Asthma, DM, HTN, GERD here for 1 week of shortness of breath, cough, and wheezing. THe patient says she get much more out of breath when exerting herself these days. She says she has trouble walking across a room and this previously was never the case. The patient denies fevers, chills, sweats, productive cough, nausea, vomiting. - Related Data Allergies/Adverse Reactions: No Known Allergies Allergy (Verified 12/02/16 00:10) Home Medications: januvia 50mg po bid. metformin 1000 po bid. losartan 100mg po daily. duloxetine 60mg po daily. lantus 60units am 70units qhs. victoza 8.2mg daily Past Medical History - Social History Smoking Status: Never Smoker Chew tobacco use (# tins/day): No Frequency of alcohol use: None Drug Abuse: None Family History: Reviewed & Not Pertinent Patient has suicidal ideation: No Patient has homicidal ideation: No - Past Medical History Cardiac Medical History: Reports: Hx Hypertension Denies: Hx Coronary Artery Disease, Hx Heart Attack Pulmonary Medical History: Reports: Hx Asthma, Hx Bronchitis Denies: Hx COPD, Hx Pneumonia Neurological Medical History: Reports: Hx Migraine. Denies: Hx Cerebrovascular Accident, Hx Seizures Endocrine Medical History: Reports: Hx Diabetes Mellitus Type 1, Hx Diabetes Mellitus Type 2 Renal/ Medical History: Denies: Hx Peritoneal Dialysis GI Medical History: Reports: Hx Gastroesophageal Reflux Disease Musculoskeletal Medical History: Reports Hx Arthritis Psychiatric Medical History: Reports: Hx Schizophrenia Denies: Hx Depression Past Surgical History: Reports: Hx Abdominal Surgery, Hx Hysterectomy, Hx Orthopedic Surgery - Immunizations Immunizations up to date: Yes Hx Diphtheria, Pertussis, Tetanus Vaccination: Yes Physical Exam - Vital signs Vitals: Pulse Ox 99 03/11/19 21:43 - Notes Notes: GENERAL: Well-appearing, well-nourished and in no acute distress. HEAD: Atraumatic, normocephalic. EYES: Pupils equal round and reactive to light, extraocular movements intact, sclera anicteric, conjunctiva are normal. ENT: TMs normal, nares patent, oropharynx clear without exudates. Moist mucous membranes. NECK: Normal range of motion, supple without lymphadenopathy or JVD. LUNGS: Breath sounds clear to auscultation bilaterally and equal. No wheezes rales or rhonchi. HEART: Regular rate and rhythm without murmurs, rubs or gallops. ABDOMEN: Soft, nontender, normoactive bowel sounds. No guarding, no rebound. No masses appreciated. EXTREMITIES: Normal range of motion, no pitting or edema. No clubbing or cyanosis. NEUROLOGICAL: Cranial nerves II through XII grossly intact. Normal speech, normal gait. PSYCH: Normal mood, normal affect. SKIN: Warm, Dry, normal turgor, no rashes or lesions noted. Course - Re-evaluation Re-evalutation: 03/12/19 02:21 The patient was apparently wheezing when nursing staff evaluated her. Nebs and prednisone were ordered and given before I saw the patient and she had no wheezing on my exam and was breathing comfortably. The patient had blood work an chest xray in the ER which were unremarkable including a D-Dimer which was negative. Patient's Trop abd BNP are slightly elevated but not significantly so. Plan to repeat Trop and if no signficant rise will have her follow up as an outpatient for a stress test and echo. Patient sounds like she had an asthma flare up and her slightly elevated Trop and BNP are likely demand in nature. 03/12/19 02:30 03/12/19 03:27 Repeat Trop is slightly less then first. Patient likely has mild mild demand from her asthma. Patient tells me she had a normal stress test 1 year ago. She was told to follow up with her PCP and cardiology however given she is having exertional dyspnea and should have CAD ruled out as a cause. - Vital Signs Vital signs: Temp Pulse Resp BP Pulse Ox 98.8 F 95 12 153/74 H 98 03/11/19 21:49 03/11/19 21:49 03/12/19 03:01 03/12/19 03:01 03/12/19 03:01 - Laboratory Result Diagrams: 03/11/19 22:10 03/11/19 22:10 Laboratory results interpreted by me: 03/11/19 03/11/19 03/11/19 21:52 22:10 22:10 Glucose 144 H POC Glucose 132 H Calcium 10.3 H AST 37 H Creatine Kinase 192 H NT-Pro-B Natriuret Pep 433 H Total Protein 8.9 H Urine Protein Urine Ketones Urine Urobilinogen Ur Leukocyte Esterase Urine Ascorbic Acid 03/12/19 00:05 Glucose POC Glucose Calcium AST Creatine Kinase NT-Pro-B Natriuret Pep Total Protein Urine Protein 100 H Urine Ketones TRACE H Urine Urobilinogen 2.0 H Ur Leukocyte Esterase LARGE H Urine Ascorbic Acid 40 H - Diagnostic Test Radiology reviewed: Image reviewed, Reports reviewed - EKG Interpretation by Me EKG shows normal: Sinus rhythm, Zoe, Intervals, QRS Complexes, ST-T Waves Rate: Tachycardia Discharge - Discharge Clinical Impression: Shortness of breath Asthma Qualifiers: Asthma severity: moderate Asthma persistence: unspecified Asthma complication type: with acute exacerbation Qualified Code(s): J45.901 - Unspecified asthma with (acute) exacerbation Condition: Stable Disposition: HOME, SELF-CARE Instructions: Asthma ([facility]) Additional Instructions: Follow up with your primary care doctor and consider follow up with a C ardiologist. Tell your doctors about your ER visit for shortness of breath and wheezing. Take Prednisone as prescribed. Tell your primary care doctor your BNP was slightly elevated. BNP is a measure of heart failure and you may need a stress test/cardiac echo to evaluate your heart if you continue to have shortness of breath when not having asthma attacks. Prescriptions: Prednisone [Deltasone 20 mg Tablet] 2 tab PO DAILY 5 Days #10 tablet Ipratropium/Albuterol Sulfate [Duoneb 3 ml Ampul] 3 ml NEB RTQ4 PRN 30 Days #1 vial.neb PRN Reason: Referrals: DERIC MCKNIGHT MD [Primary Care Provider] - Follow up as needed
[2019-03-11 22:56] LABS: ALBUMIN 4.6 g/dL (3.5-5.0); ALKALINE PHOSPHATASE 84 U/L (38-126); ANION GAP 17 (5-19); ASPARTATE AMINO TRANSFERASE 37 U/L (14-36); BILIRUBIN,DIRECT 0.4 mg/dL (0.0-0.4); BILIRUBIN,TOTAL 0.8 mg/dL (0.2-1.3); BLOOD UREA NITROGEN 17 mg/dL (7-20); CALCIUM 10.3 mg/dL (8.4-10.2); CARBON DIOXIDE 24 mmol/L (22-30); CHLORIDE 99 mmol/L (98-107); CREATINE KINASE 192 U/L (30-135); GLUCOSE 144 mg/dL (75-110); POTASSIUM 3.6 mmol/L (3.6-5.0); TOTAL PROTEIN 8.9 g/dL (6.3-8.2)
[2019-03-11 23:07] LABS: CREATINE KINASE MB 2.03 ng/mL (<4.55)
[2019-03-11 23:09] LABS: TROPONIN I 0.044 ng/mL
[2019-03-12 00:19] LABS: APPEARANCE,URINE SLIGHTLY-CLOUDY; BILIRUBIN,URINE NEGATIVE (NEGATIVE); COLOR,URINE AMBER; GLUCOSE, URINE NEGATIVE (NEGATIVE); KETONES,URINE TRACE mg/dL (NEGATIVE); LEUKOCYTE ESTERASE,URINE LARGE (NEGATIVE); NITRITE,URINE NEGATIVE (NEGATIVE); PROTEIN,URINE 100 mg/dL (NEGATIVE); URINE SPECIFIC GRAVITY 1.025
[2019-03-12 05:34] VITALS: BP 163/89
--- NOTE | 2019-03-12 05:36 | EKG REPORT ---
SEVERITY:- ABNORMAL ECG - SINUS TACHYCARDIA CONSIDER LEFT VENTRICULAR HYPERTROPHY : Confirmed by: Leeann Barrera MD 12-Mar-2019 05:35:44
== END 2019-03-12 05:51 | disposition home or self-care (01) ==
LOC: ER 21:38
DX: J45.901 Unspecified asthma with (acute) exacerbation (principal); R06.02 Shortness of breath; R05 Cough; E11.9 Type 2 diabetes mellitus without complications; I10 Essential (primary) hypertension; Z79.4 Long term (current) use of insulin; Z79.899 Other long term (current) drug therapy; R79.89 Other specified abnormal findings of blood chemistry
CPT/HCPCS: 93005; 94640 ×2; 99285; 96374; 36415; 82553; 82962; 82550; 85025; 80053; 81001; 84484; 85379; 83880; 71045; 93010; A9270 ×3; J2405; J7512; J7620

== ENCOUNTER 2020-01-16 01:05 | Emergency (ER) | payer OTHER, MEDICARE ==
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
[2020-01-16 02:07] LABS: ABSOLUTE BASOPHILS # (AUTO) 0.1 10^3/uL (0.0-0.2); ABSOLUTE EOSINOPHILS # (AUTO) 0.1 10^3/uL (0.0-0.6); ABSOLUTE LYMPHOCYTES (AUTO) 2.4 10^3/uL (0.5-4.7); ABSOLUTE MONOCYTES (AUTO) 0.7 10^3/uL (0.1-1.4); ABSOLUTE NEUT (AUTO) 5.2 10^3/uL (1.7-8.2); BASOPHILS % (AUTO) 0.8 % (0-2); EOSINOPHILS % (AUTO) 1.6 % (0-6); HEMATOCRIT 34.5 % (36.0-47.0); HEMOGLOBIN 11.6 g/dL (12.0-15.5); LYMPHOCYTES % (AUTO) 28.5 % (13-45); MEAN CORPUSCULAR HEMOGLOBIN 30.8 pg (27.0-33.4); MEAN CORPUSCULAR HGB CONC 33.7 g/dL (32.0-36.0); MEAN CORPUSCULAR VOLUME 92 fl (80-97); MONOCYTES % (AUTO) 7.7 % (3-13); PLATELET COUNT 243 10^3/uL (150-450); RED BLOOD COUNT 3.77 10^6/uL (3.72-5.28); RED CELL DISTRIBUTION WIDTH 13.7 % (11.5-14.0); SEGMENTED NEUTROPHILS % (AUTO) 61.4 % (42-78); TOTAL CELLS COUNTED % (AUTO) 100 %; WHITE BLOOD COUNT 8.5 10^3/uL (4.0-10.5)
[2020-01-16 02:57] VITALS: BP 127/70
[2020-01-16 03:52] LABS: ALBUMIN 3.9 g/dL (3.5-5.0); ALKALINE PHOSPHATASE 56 U/L (38-126); ANION GAP 10 (5-19); ASPARTATE AMINO TRANSFERASE 34 U/L (14-36); BILIRUBIN,DIRECT 0.2 mg/dL (0.0-0.4); BILIRUBIN,TOTAL 0.4 mg/dL (0.2-1.3); BLOOD UREA NITROGEN 13 mg/dL (7-20); CALCIUM 9.2 mg/dL (8.4-10.2); CARBON DIOXIDE 28 mmol/L (22-30); CHLORIDE 102 mmol/L (98-107); GLUCOSE 140 mg/dL (75-110); POTASSIUM 3.8 mmol/L (3.6-5.0); TOTAL PROTEIN 7.6 g/dL (6.3-8.2)
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
== END 2020-01-16 06:43 | disposition home or self-care (01) ==
LOC: ER 01:05
DX: S39.012A Strain of muscle, fascia and tendon of lower back, initial encounter (principal); R10.9 Unspecified abdominal pain; V89.2XXA Person injured in unspecified motor-vehicle accident, traffic, initial encounter; I10 Essential (primary) hypertension; E11.9 Type 2 diabetes mellitus without complications; Z90.710 Acquired absence of both cervix and uterus
CPT/HCPCS: 36415; 71260; 74177; 80053; 85025; 99285